=== PATIENT | male | born 1965 | race Caucasian/White ===

== ENCOUNTER 2023-05-25 08:00 | Outpatient (OUT) | payer BC, SELFPAY ==
[2023-05-25] MEDS: COVID VAC 23-24(12UP)MODERNA/PF 50 MCG/0.5 ML VIAL IM (13:00)
== END 2023-05-25 08:01 | disposition home or self-care (01) ==
LOC: VACCLI 06-18 16:23
DX: Z23 Encounter for immunization (principal)
CPT/HCPCS: 90480; 91322

== ENCOUNTER 2023-06-20 08:55 | Outpatient (OUT) | payer BC, SELFPAY ==
[2023-06-20 10:06] LABS: Basophils Percent Auto 0.4 % (0.2-2.0); Eosinophils Absolute Auto 0.1 10^3/uL (0.0-0.7); Eosinophils Percent Auto 1.8 % (0.9-7.0); Hemoglobin 13.4 g/dL (14.0-18.0); Immature Granulocytes Abs Auto 0.01 10^3/uL (0.00-0.03); Immature Granulocytes Pct Auto 0.2 % (0.0-0.5); Lymphocytes Absolute Auto 1.7 10^3/uL (1.2-3.8); Lymphocytes Percent Auto 36.9 % (20.5-60.0); Mean Corpuscular HGB Conc 32.7 g/dL (29.9-35.2); Mean Corpuscular Volume 91.7 fL (80.0-94.0); Mean Platelet Volume 9.8 fL (9.5-13.5); Monocytes Absolute Auto 0.6 10^3/uL (0.3-0.8); Monocytes Percent Auto 13.9 % (1.7-12.0); Neutrophils Absolute Auto 2.1 10^3/uL (1.4-6.5); Neutrophils Percent Auto 46.8 % (43.0-75.0); Platelet Count 261 10^3/uL (150-450); Red Blood Count 4.47 10^6/uL (4.70-6.10); Red Cell Distribution Width 13.4 % (11.0-15.0); White Blood Count 4.5 10^3/uL (4.0-11.0)
[2023-06-20 10:39] LABS: Estimated Average Glucose 123 mg/dL; Glycohemoglobin A1C 5.9 % (4.5-6.2)
[2023-06-20 10:51] LABS: Prostate Specific Antigen Scrn 2.98 ng/mL (<=4.00)
[2023-06-20 10:52] LABS: Alanine Aminotransferase 34 U/L (16-63); Albumin Globulin Ratio 1.2; Albumin Level 4.5 g/dL (3.4-5.0); Alkaline Phosphatase 73 U/L (46-116); Anion Gap 15.2; Aspartate Amino Transferase 32 U/L (15-37); BUN Creatinine Ratio 12.3; Bilirubin Total 0.5 mg/dL (0.2-1.0); Calcium 9.6 mg/dL (8.5-10.1); Carbon Dioxide 28.1 mmol/L (21.0-32.0); Chloride 99 mmol/L (98-107); Chol HDL Ratio 2.2; Cholesterol 175 mg/dL (<=200); Estimated GFR (African America >60 (>=60); Estimated GFR (Non-African Ame 53 (>=60); Globulin 3.7 g/dL; Glucose 117 mg/dL (74-106); HDL Cholesterol 81 mg/dL (40-60); Potassium 4.3 mmol/L (3.5-5.1); Sodium 138 mmol/L (136-145); Thyroid Stimulating Hormone 1.323 uIU/mL (0.358-3.740); Total Protein 8.2 g/dL (6.4-8.2); Triglycerides 74 mg/dL (<=150); VLDL CHOLESTEROL 14.8 mg/dL
== END 2023-06-20 08:56 | disposition home or self-care (01) ==
PROVIDERS: PCP Internal Medicine; Visit Provider Internal Medicine
DX: Z00.00 Encounter for general adult medical examination without abnormal findings (principal)
CPT/HCPCS: 36415; 80053; 80061; 83036; 84443; 85025; G0103

== ENCOUNTER 2023-07-12 09:01 | Emergency (ER) | payer BC, SELFPAY ==
[2023-07-12] VITALS (32 sets, daily range): BP systolic 115–188; BP diastolic 74–92; PULSE 65–81; RESP 14–26; TEMP 36.6; O2SAT 98–99; BMI 27.3
--- NOTE | 2023-07-12 09:14 | PC.NURSE ---
PT STATES UPPER TO MID- PAIN THAT STARTED AT 0530 AND HAS SINCE RADIATED TO MID-CHEST. PT DENIES HX CARDIAC DISEASE BUT HAS EXTENSIVE FAMILY HISTORY OF CARDIAC DISEASE. PT TOOK TYLENOL AND MOTRIN WHEN PAIN STARTED THINKING IT WAS MUSCULAR PAIN.
--- NOTE | 2023-07-12 09:22 | ED.CHESTPAI1 ---
HPI - Chest Pain General Chief Complaint: Chest Pain Stated Complaint: CHEST PAIN Time Seen by Provider: 07/12/23 09:21 Source: patient Mode of arrival: walk-in Limitations: no limitations History of Present Illness HPI narrative: patient presents with discomfort in his chest. 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 It's been persistent since that time. It is not associated with nausea vomiting or diaphoresis. It does not radiate to his neck and jaw or arm. He's not had previous cardiovascular disease. He does take a statin. There is no other cardiovascular risk factors. He does not have any shortness of breath. He's been able to maintain his exercise schedule recently with no shortness of breath. Has notswelling of his legs. Has not had recent viral syndrome. Did not have any unusual events over the weekend. Has not had previous stress test, echo or coronary CT scanning. Related Data Home Medications Medication Instructions Recorded Confirmed pantoprazole 40 mg tablet,delayed 40 mg PO DAILY 07/12/23 07/12/23 release simvastatin 20 mg tablet 20 mg PO BEDTIME 07/12/23 07/12/23 Allergies Allergy/AdvReac Type Severity Reaction Status Date / Time No Known Drug Allergies Allergy Verified 07/12/23 09:09 [facility] Social History Smoking status: Never smoker Exam Narrative Exam Narrative: patient does not appear acutely ill and much of his symptoms have dissipated. He is awake alert oriented ?3 normal cognition. He is not clammy or diaphoretic or anxious. Vital signs are noted. Stat EKG was done on arrival does not show any ST segment elevation or gross abnormalities. Pulse oximetry and vital signs are stable. He's awake alert normal cognition and mentation. HEENT shows no scleral icterus pallor or anemia. He has no carotid bruits. He has no jugular vein distention. Heart sounds are normal with no clicks rubs gallops or murmurs. Lungs are clear with no wheezes rales or rhonchi. He has no abdominal discomfort. Pulses to the extremities are normal with good tissue perfusion and he does not have any pulse deficit between the upper right extremity and the lower right extremity. Legs do not show any evidence of evidence of deep vein thrombosis phlebitis or edema. Skin is warm and dry with no petechiae purpura or rash or exanthem. Neurological examination is within normal limits. Constitutional Vital Signs, click to edit/add: Last Vital Signs Temp 97.8 F 07/12/23 09:05 Pulse 74 07/12/23 09:05 Resp 18 07/12/23 09:05 BP 158/74 H 07/12/23 09:05 Pulse Ox 99 07/12/23 09:05 O2 Del Method Room Air 07/12/23 09:05 Course Vital Signs Vital signs: Vital Signs Temperature 97.8 F 07/12/23 09:05 Pulse Rate 74 07/12/23 09:05 Respiratory Rate 18 07/12/23 09:05 Blood Pressure 158/74 H 07/12/23 09:05 Pulse Oximetry 99 07/12/23 09:05 Oxygen Delivery Method Room Air 07/12/23 09:05 Temperature 97.8 F 07/12/23 09:05 Pulse Rate 74 07/12/23 09:05 Respiratory Rate 18 07/12/23 09:05 Blood Pressure 158/74 H 07/12/23 09:05 Pulse Oximetry 99 07/12/23 09:05 Oxygen Delivery Method Room Air 07/12/23 09:05 MDM - Chest Pain MDM Narrative Medical decision making narrative: patient presents with only one cardiovascular risk factor with elevation of his cholesterol and he is currently on a statin. Has not had previous cardiovascular events or stress testing. Both cardiac troponins are normal. Serial EKGs also normal. Chest x-ray does not show any evidence of widening of the mediastinum or other cardiovascular abnormalities. We did discuss his follow-up with the on-call cardiologistut at [facility]. they indicated they would be glad to see him at any time. I also spoke with his local primary care doctor who will order a stress test for him. At this stage we feel confident that he can resume normal activities until the stress test is completed. Of course returning to to the Emergency Room for any recurrence of symptoms or change Heart Score History: Slightly/Non-Suspicious ECG: Normal Age: <45 years Risk Factors: 1 or 2 Risk Factors Troponin: <Normal Limit Total Heart Score Recommendations & Risks:: 1 Discharge Plan Discharge Chief Complaint: Chest Pain Clinical Impression: Chest pain Patient Disposition: Home, Self-Care Time of Disposition Decision: 11:43 Prescriptions / Home Meds: No Action simvastatin 20 mg tablet 20 mg PO BEDTIME pantoprazole 40 mg tablet,delayed release (DR/EC) 40 mg PO DAILY Additional Instructions: stress test as arranged by Dr. greer Stand Alone Forms: Portal Instructions Referrals: Miguel Angel Greer DO [Primary Care Provider] - 1 week
--- NOTE | 2023-07-12 09:25 | XR_ITS ---
[address] [address] Patient Name: DAVON HECK MRN: [id number] date: 1965 Sex: M Assigned Patient Location: ER Current Patient Location: ER Accession/Order Number: [id number] Exam Date: 07/12/2023 09:45 Report Date: 07/12/2023 10:00 At the request of: JEWELS KRAUSE Procedure: XR chest 1V EXAMINATION: XR chest 1V HISTORY: chest pain COMPARISON: No relevant comparison available. TECHNIQUE: AP portable FINDINGS: LUNGS: No significant pulmonary parenchymal abnormalities. VASCULATURE: No increased pulmonary vasculature. PLEURA: No pneumothorax, effusion, or pleural thickening. CARDIAC: No cardiomegaly or cardiac silhouette abnormality. MEDIASTINUM: No visible mass or adenopathy. BONES: No fracture or visible bone lesion. OTHER: Negative. XR/XR chest 1V IMPRESSION: No acute cardiopulmonary process Electronically authenticated by: FAY MEJIA Date: 07/12/2023 10:00
--- OUTSIDE RECORDS SUMMARY | 2023-07-12 09:29 | XMS_ITS | CCD ---
Author Name Unknown Address [address] [place] [address] Organization [facility] Care Team Providers Care Medical Technologist Hematology Name Role Phone DAVON, DR CHA Admitting Unavailable DAVON, DR CHA Attending Unavailable DAVON, DR CHA Primary Care Unavailable DAVON, DR CHA Consulting Unavailable DAVON, DR CHA Primary Care Unavailable SINDI CARLOS Admitting Unavailable SINDI CARLOS Attending Unavailable SINDI CARLOS Consulting Unavailable MARIA R, DR MAYS Admitting Unavailable MARIA R, DR MAYS Attending Unavailable DAVON, DR CHA Primary Care Unavailable MARIA R, DR MAYS Consulting Unavailable YAYO BOYKIN Admitting Unavailable YAYO BOYKIN Attending Unavailable DAVON, DR CHA Primary Care Unavailable YAYO BOYKIN Consulting Unavailable Allergies Allergy Classification Reported Allergen(s) Allergy Type Date of Onset Reaction(s) Facility (1 source) moxifloxacin Drug Allergy 12-24-2016 [facility] Repository Problems Active Problems Problem Classification Problem Date Documented Da te Episodic/Chronic Malaise and fatigue (4 sources) Other fatigue; Translations: [OTHER FATIGUE] Onset: 06-01-2022 Episodic Other screening for suspected conditions (not mental disorders or infectious disease) (1 source) Encounter for screening for malignant neoplasm of prostate; Translations: [ENC SCREEN MALIG NEOPLASM PROSTATE] Onset: 07-01-2022 Episodic Other upper respiratory disease (1 source) Nasal congestion; Translations: [NASAL CONGESTION] Onset: 06-04-2022 Episodic Unclassified (1 source) COUGH, UNSPECIFIED; Translations: [COUGH, UNSPECIFIED] Onset: 06-04-2022 Unclassified (2 sources) CONTACT W/AND (SUSP) EXPOS COVID-19; Translations: [CONTACT W/AND (SUSP) EXPOS COVID-19] Onset: 01-14-2022 Viral infection (1 source) COVID-19; Translations: [COVID-19] Onset: 01-14-2022 Past or Other Problems Problem Classification Problem Date Documented Da te Episodic/Chronic Unclassified (1 source) CONTACT W/AND (SUSP) EXPOS COVID-19; Translations: [CONTACT W/AND (SUSP) EXPOS COVID-19] Onset: 01-10-2022 Results Test Name Value Interpretation Reference Range Facility CBC AUTO DIFFon 06-23-2022 BASO # 0.0 103/ul Normal 0.0-0.1 [facility] Comment on above: Performed By: #### C BC #### [facility] Laboratory [address] [place] [address] Dr. Cintia Durán Basophils/100 WBC (Bld) 0.7 % Normal 0.2-2.0 [facility] Comment on above: Performed By: #### C BC #### [facility] Laboratory [address] [place] [address] Dr. Cintia Durán EO # 0.2 103/ul Normal 0.0-0.7 [facility] Comment on above: Performed By: #### C BC #### [facility] Laboratory [address] [address] [address] Cintia Durán Eosinophils/100 WBC (Bld) 2.7 % Normal 0.9-7.0 [facility] Comment on above: Performed By: #### C BC #### [facility] Laboratory [address] [place] [address] Dr. Cintia Durán Erythrocyte distribution width (RBC) [Ratio] 12.4 % Normal 11.0-15.0 [facility] Comment on above: Performed By: #### C BC #### [facility] Laboratory [address] [place] [address] Dr. Cintia Durán Hematocrit (Bld) [Volume fraction] 42.7 % Normal 42.0-54.0 [facility] Comment on above: Performed By: #### C BC #### [facility] Laboratory [address] [place] [address] Dr. Cintia Durán Hemoglobin (Bld) [Mass/Vol] 14.0 g/dL Normal 14.0-18.0 [facility] Comment on above: Performed By: #### C BC #### [facility] Laboratory [address] [place] [address] Dr. Cintia Durán IG # 0.02 10e3/ul Normal 0.00-0.03 [facility] Comment on above: Performed By: #### C BC #### [facility] Laboratory [address] [place] [address] Dr. Cintia Durán IG % 0.4 % Normal 0.0-0.5 [facility] Comment on above: Performed By: #### C BC #### [facility] Laboratory [address] [place] [address] Dr. Cintia Durán LYMPH # 2.2 103/ul Normal 1.2-3.8 [facility] Comment on above: Performed By: #### C BC #### [facility] Laboratory [address] [place] [address] Dr. Cintia Durán Lymphocytes/100 WBC (Bld) 38.8 % Normal 20.5-60.0 [facility] Comment on above: Performed By: #### C BC #### [facility] Laboratory [address] [place] [address] Dr. Cintia Durán MANUAL DIFF REQ NO Normal [facility] Comment on above: Performed By: #### C BC #### [facility] Laboratory [address] [place] [address] Dr. Cintia Durán MCH (RBC) [Entitic mass] 31.0 pg Normal 25.9-34.0 [facility] Comment on above: Performed By: #### C BC #### [facility] Laboratory [address] [place] [address] Dr. Cintia Durán MCHC (RBC) [Mass/Vol] 32.8 g/dL Normal 29.9-35.2 [facility] Comment on above: Performed By: #### C BC #### [facility] Laboratory [address] [place] [address] Dr. Cintia Durán MCV (RBC) [Entitic vol] 94.7 fL Critically high 80.0-94.0 [facility] Comment on above: Performed By: #### C BC #### [facility] Laboratory [address] [place] [address] Dr. Cintia Durán MONO # 0.5 103/ul Normal 0.3-0.8 [facility] Comment on above: Performed By: #### C BC #### [facility] Laboratory [address] [place] [address] Dr. Cintia Durán Monocytes/100 WBC (Bld) 9.6 % Normal 1.7-12.0 [facility] Comment on above: Performed By: #### C BC #### [facility] Laboratory [address] [place] [address] Dr. Cintia Durán NEUT # 2.7 103/ul Normal 1.4-6.5 [facility] Comment on above: Performed By: #### C BC #### [facility] Laboratory [address] [place] [address] Dr. Cintia Durán Neutrophils/100 WBC (Bld) 47.8 % Normal 43.0-75.0 [facility] Comment on above: Performed By: #### C BC #### [facility] Laboratory [address] [place] [address] Dr. Cintia Durán Platelet mean volume (Bld) [Entitic vol] 9.7 fL Normal 9.5-13.5 [facility] Comment on above: Performed By: #### C BC #### [facility] Laboratory [address] [place] [address] Dr. Cintia Durán PLT 261 103/ul Normal 150-450 [facility] Comment on above: Performed By: #### C BC #### [facility] Laboratory [address] [place] [address] Dr. Cintia Durán RBC 4.51 106/ul Critically low 4.70-6.10 [facility] Comment on above: Performed By: #### C BC #### [facility] Laboratory [address] [place] [address] Dr. Cintia Durán WBC 5.7 103/ul Normal 4.0-11.0 [facility] Comment on above: Performed By: #### C BC #### [facility] Laboratory [address] [place] [address] Dr. Cintia Durán GLYCOHEMOGLOBIN A1Con 2021 ADA RECOMMENDATION SEE BELOW Normal [facility] Comment on above: Result Comment: ADA RECOMMENDED LIMIT 4.0 - 6.0 ADA THERAPEUTIC TARGET < 7.0 ACTION SUGGESTED > 7.0 Performed By: #### A 1C #### [facility] Laboratory [address] [address] [address] Cintia Durán Glucose [Mass/Vol] 111 mg/dL Normal [facility] Comment on above: Performed By: #### A 1C #### [facility] Laboratory [address] [address] [address] Cintia Durán HbA1c (Bld) [Mass fraction] 5.5 % Normal 4.5-6.2 [facility] Comment on above: Performed By: #### A 1C #### [facility] Laboratory [address] [address] [address] Cintia Durán LIPID PROFILEon 06-23-2022 CHOL-HDL RATIO NORM SEE BELOW Normal [facility] Comment on above: Result Comment: 3.3 - 4.4 LOW RISK 4.4 - 7.1 AVERAGE RISK 7.1 - 11.0 MODERATE RISK >11.0 HIGH RISK Performed By: #### L IPID, CMP, TSH #### [facility] Laboratory [address] [address] [address] Cintia Durán Cholesterol [Mass/Vol] 249 mg/dL Critically high <=200 [facility] Comment on above: Performed By: #### L IPID, CMP, TSH #### [facility] Laboratory [address] [address] [address] Cintia Durán Cholesterol in HDL [Mass/Vol] 79 mg/dL Critically high 40-60 [facility] Comment on above: Performed By: #### L IPID, CMP, TSH #### [facility] Laboratory [address] [address] [address] Cintia Durán Cholesterol in LDL [Mass/Vol] 149.2 mg/dL Normal [facility] Comment on above: Performed By: #### L IPID, CMP, TSH #### [facility] Laboratory [address] [address] [address] Cintia Durán Cholesterol.total/Ch olesterol in HDL [Mass ratio] 3.2 {ratio} Normal [facility] Comment on above: Performed By: #### L IPID, CMP, TSH #### [facility] Laboratory [address] [address] [address] Cintia Durán HDL NORMAL > or = 60 mg/dl - LOW CARDIOVASCULAR RISK <40 mg/dl - HIGH CARDIOVASCULAR RISK Normal [facility] Comment on above: Performed By: #### L IPID, CMP, TSH #### [facility] Laboratory [address] [address] [address] Cintia Durán LDL CALC NORMAL SEE BELOW Normal [facility] Comment on above: Result Comment: <100 mg/dl OPTIMAL 100 - 129 mg/dl NEAR OR ABOVE OPTIMAL 130 - 159 mg/dl BORDERLINE HIGH 160 - 189 mg/dl HIGH >190 mg/dl VERY HIGH Performed By: #### L IPID, CMP, TSH #### [facility] Laboratory [address] [address] [address] Cintia Durán Triglyceride [Mass/Vol] 104 mg/dL Normal <=150 [facility] Comment on above: Performed By: #### L IPID, CMP, TSH #### [facility] Laboratory [address] [address] [address] Cintia Durán VLDL CALC 20.8 mg/dL Normal [facility] Comment on above: Performed By: #### L IPID, CMP, TSH #### [facility] Laboratory [address] [address] [address] Cintia Durán PROF 14(COMP METB)on 022 Albumin [Mass/Vol] 4.4 g/dL Normal 3.4-5.0 [facility] Comment on above: Performed By: #### L IPID, CMP, TSH #### [facility] Laboratory [address] [address] [address] Cintia Durán Albumin/Globulin [Mass ratio] 1.2 {ratio} Normal [facility] Comment on above: Performed By: #### L IPID, CMP, TSH #### [facility] [address] [address] [address] Cintia Durán ALP [Catalytic activity/Vol] 68 U/L Normal 46-116 [facility] Comment on above: Performed By: #### L IPID, CMP, TSH #### [facility] Laboratory [address] [address] [address] Cintia Durán ALT [Catalytic activity/Vol] 31 U/L Normal 16-63 [facility] Comment on above: Performed By: #### L IPID, CMP, TSH #### [facility] Laboratory [address] [address] [address] Cintia Durán Anion gap [Moles/Vol] 12.4 mmol/L Normal [facility] Comment on above: Performed By: #### L IPID, CMP, TSH #### [facility] [address] [address] [address] Cintia Durán AST [Catalytic activity/Vol] 26 U/L Normal 15-37 [facility] Comment on above: Performed By: #### L IPID, CMP, TSH #### [facility] Laboratory [address] [place] [address] Dr. Cintia Durán Bilirubin [Mass/Vol] 0.4 mg/dL Normal 0.2-1.0 [facility] Comment on above: Performed By: #### L IPID, CMP, TSH #### [facility] [address] [address] [address] Cintia Durán Calcium [Mass/Vol] 9.6 mg/dL Normal 8.5-10.1 [facility] Comment on above: Performed By: #### L IPID, CMP, TSH #### [facility] Laboratory [address] [place] [address] Dr. Cintia Durán Chloride [Moles/Vol] 100 mmol/L Normal 98-107 [facility] Comment on above: Performed By: #### L IPID, CMP, TSH #### [facility] Laboratory [address] [place] [address] Dr. Cintia Durán CO2 [Moles/Vol] 27.9 mmol/L Normal 21.0-32.0 [facility] Comment on above: Performed By: #### L IPID, CMP, TSH #### [facility] Laboratory [address] [place] [address] Dr. Cintia Durán Creatinine [Mass/Vol] 1.00 mg/dL Normal 0.70-1.30 [facility] Comment on above: Performed By: #### L IPID, CMP, TSH #### [facility] Laboratory [address] [address] [address] Cintia Durán EGFR-AF ESTONIAN >60 Normal >=60 [facility] Comment on above: Performed By: #### L IPID, CMP, TSH #### [facility] Laboratory [address] [address] [address] Cintia Durán EGFR-NON AF ESTONIAN >60 Normal >=60 [facility] Comment on above: Performed By: #### L IPID, CMP, TSH #### [facility] Laboratory [address] [address] [address] Cintia Durán Globulin (S) [Mass/Vol] 3.7 g/dL Normal [facility] Comment on above: Performed By: #### L IPID, CMP, TSH #### [facility] Laboratory [address] [address] [address] Cintia Durán Glucose [Mass/Vol] 95 mg/dL Normal 74-106 [facility] Comment on above: Performed By: #### L IPID, CMP, TSH #### [facility] Laboratory [address] [address] [address] Cintia Durán Potassium [Moles/Vol] 4.3 mmol/L Normal 3.5-5.1 [facility] Comment on above: Performed By: #### L IPID, CMP, TSH #### [facility] Laboratory [address] [address] [address] Cintia Durán Protein [Mass/Vol] 8.1 g/dL Normal 6.4-8.2 [facility] Comment on above: Performed By: #### L IPID, CMP, TSH #### [facility] Laboratory [address] [address] [address] Cintia Durán Sodium [Moles/Vol] 136 mmol/L Normal 136-145 [facility] Comment on above: Performed By: #### L IPID, CMP, TSH #### [facility] Laboratory [address] [place] [address] Dr. Cintia Durán Urea nitrogen [Mass/Vol] 16.0 mg/dL Normal 7.0-18.0 [facility] Comment on above: Performed By: #### L IPID, [facility], TSH #### [facility] Laboratory [address] [place] [address] Dr. Cintia Durán Urea nitrogen/Creatinine [Mass ratio] 16.0 mg/mg Normal [facility] Comment on above: Performed By: #### L IPID, CMP, TSH #### [facility] Laboratory [address] [place] [address] Dr. Cintia Durán TSHon 06-23-2022 TSH 1.975 uIU/mL Normal 0.358-3.[address] [facility] Comment on above: Performed By: #### L IPID, CMP, TSH #### [facility] Laboratory [address] [place] [address] Dr. Cintia Durán Covid-19 PCR ([facility])on 05-06 SARS-CoV-2 (COVID-19) RNA NGUYEN+probe Ql (Unsp spec) Not detected Normal NOT DETECTED [facility] Comment on above: Result Comment: When diagnostic testing is negative, the possibility of a false negative should be considered in the context of a patient's recent exposures and the presence of clinical signs and symptoms consistent with SARS-CoV-2. This test is not yet approved or cleared by the [place] FDA. When there are no FDA-approved or cleared tests available, and other criteria are met, FDA can make tests available under an emergency access mechanism called an Emergency Use Authorization (EUA). The EUA for this test is supported by the [place] of Health and Human Service's declaration that circumstances exist to justify the emergency use of in vitro diagnostics for the detection and/or diagnosis of the virus that causes COVID-19. This EUA will remain in effect for the duration of the COVID-19 declaration justifying emergency of IVDs, unless it is terminated or revoked by the FDA (after which the test may no longer be used). Performed By: #### C VDTBH #### [facility] Laboratory [address] [place] [address] Dr. Cintia Durán INFLUENZA A AND B AGon 06-01 [facility] SEE BELOW Normal [facility] Comment on above: Result Comment: Nega tive for Flu A protein angiten. Infection due to Flu A cannot be ruled out. Flu A angiten in the sample may be below the detection limit of the test. Performed By: #### I NFLUAB #### [facility] Laboratory [address] [place] [address] Dr. Cintia Dur[facility] Normal [facility] Comment on above: Result Comment: Nega tive for Flu B protein antigen. Infection due to Flu B cannot be ruled out. Flu B antigen in the sample may be below the detection limit of the test. Performed By: #### I NFLUAB #### [facility] Laboratory [address] [place] [address] Dr. Cintia Durán INFLUENZA A AG Negative Normal NEGATIVE SEE COMMENT [facility] Comment on above: Performed By: #### I NFLUAB #### [facility] Laboratory [address] [place] [address] Dr. Cintia Durán INFLUENZA B AG Negative Normal NEGATIVE SEE COMMENT [facility] Comment on above: Performed By: #### I NFLUAB #### [facility] Laboratory [address] [place] [address] Dr. Cintia Durán INTERNAL CONTROLS Within Normal Limits Normal Within Normal Limits [facility] Comment on above: Performed By: #### I NFLUAB #### [facility] Laboratory [address] [place] [address] Dr. Cintia Durán [facility]on SARS-CoV-2 (COVID-19) RNA NGUYEN+probe Ql (Unsp spec) Detected Critically abnormal NOT DETECTED [facility] Comment on above: Result Comment: This test is not yet approved or cleared by the [place] FDA. When there are no FDA-approved or cleared tests available, and other criteria are met, FDA can make tests available under an emergency access mechanism called an Emergency Use Authorization (EUA). The EUA for this test is supported by the [place] of Health and Human Service's declaration that circumstances exist to justify the emergency use of in vitro diagnostics for the detection and/or diagnosis of the virus that causes COVID-19. This EUA will remain in effect for the duration of the COVID-19 declaration justifying emergency of IVDs, unless it is terminated or revoked by the FDA (after which the test may no longer be used). Performed By: #### C [facility] #### [facility] Laboratory [address] [place] [id number] [address] Cintia Durán Encounters Encounter Date Encounter Type Care Provider Facility Start: 07-01-2022 Encounter for genera l adult medical examination without abnormal findings DR SEMAJ MAYS [facility] Start: 06-23-2022 End: 06-24-[address] SEMAJ MAYS Facility:[facility] Start: 06-23-2022 End: 06-24-2022 Encounter for general adult medical examination without abnormal findings DR SEMAJ MAYS Facility:[facility] Start: 06-01-2022 End: 06-01-2022 ambulatory YAYO BOYKIN Facility:[facility] Start: 05-13-2022 End: 05-14-[address] DAVON HECK Facility:[facility] Start: 01-10-2022 End: 01-11-[address] SEMAJ MAYS Facility:[facility] Procedures Date Procedure Procedure Detail Performing Clinician Start: 06-23-[address] KWONG [place] Comment on above: Performed By: #### P [facility] #### [facility] Laboratory [address] [place], [place] [id number] Dr. Cintia Durán Payers Date Payer Category Payer Unknown [id number] 1965 Unknown [id number] 08.20.83 [id number] 1965 Unknown [id number] 08.20.83 [id number] 1965 Unknown [id number] 08.20.83 [id number] 1960 Self-pay [id number] Unknown [id number] 08.20.83 [id number] Summary Purpose Family History No Family History Records Found Advance Directives No Advanced Directives Records Found Additional Source Comments (unrecognized sect ion and content) No Status Records Found INFORMATION SOURCE (unrecogn ized section and content) DATE CREATED AUTHOR 07/01/2022 [facility] FOR RECORDS PERTAINING TO PATIENTS WHO ARE OR HAVE BEEN ENROLLED IN A CHEMICAL DEPENDENCY/SUBSTANCEABUSE PROGRAM, SOME INFORMATION MAY BE OMITTED. This clinical summary was aggregated from multiple sources. Caution should be exercised in using it in the provision of clinical care. This summary normalizes information from multiple sources, and as a consequence, information in this document may materially change the coding, format and clinical context of patient data. In addition, data may be omitted in some cases. CLINICAL DECISIONS SHOULD BE BASED ON THE PRIMARY CLINICAL RECORDS. [facility] [employer] [facility] provides no warranty or guarantee of the accuracy or completeness of information in this document.
[2023-07-12 09:37] LABS: Basophils Percent Auto 0.9 % (0.2-2.0); Eosinophils Absolute Auto 0.2 10^3/uL (0.0-0.7); Eosinophils Percent Auto 3.6 % (0.9-7.0); Hematocrit 43.1 % (42.0-54.0); Hemoglobin 14.2 g/dL (14.0-18.0); Immature Granulocytes Abs Auto 0.01 10^3/uL (0.00-0.03); Immature Granulocytes Pct Auto 0.2 % (0.0-0.5); Lymphocytes Absolute Auto 1.3 10^3/uL (1.2-3.8); Lymphocytes Percent Auto 29.3 % (20.5-60.0); Mean Corpuscular HGB Conc 32.9 g/dL (29.9-35.2); Mean Corpuscular Hemoglobin 30.4 pg (25.9-34.0); Mean Corpuscular Volume 92.3 fL (80.0-94.0); Mean Platelet Volume 9.8 fL (9.5-13.5); Monocytes Absolute Auto 0.4 10^3/uL (0.3-0.8); Monocytes Percent Auto 8.9 % (1.7-12.0); Neutrophils Absolute Auto 2.6 10^3/uL (1.4-6.5); Neutrophils Percent Auto 57.1 % (43.0-75.0); Platelet Count 252 10^3/uL (150-450); Red Blood Count 4.67 10^6/uL (4.70-6.10); Red Cell Distribution Width 13.7 % (11.0-15.0); White Blood Count 4.5 10^3/uL (4.0-11.0)
[2023-07-12 09:51] LABS: Alanine Aminotransferase 35 U/L (16-63); Albumin Globulin Ratio 1.1; Albumin Level 4.5 g/dL (3.4-5.0); Alkaline Phosphatase 86 U/L (46-116); Aspartate Amino Transferase 28 U/L (15-37); BUN Creatinine Ratio 10.7; Bilirubin Total 0.4 mg/dL (0.2-1.0); Calcium 9.9 mg/dL (8.5-10.1); Carbon Dioxide 27.6 mmol/L (21.0-32.0); Chloride 98 mmol/L (98-107); Estimated GFR (African America >60 (>=60); Estimated GFR (Non-African Ame 56 (>=60); Glucose 159 mg/dL (74-106); Potassium 3.6 mmol/L (3.5-5.1); Sodium 133 mmol/L (136-145); Total Protein 8.5 g/dL (6.4-8.2)
--- NOTE | 2023-07-12 09:56 | ECG_ITS ---
[facility] Test Date: 2023-07-12 Pat Name: DAVON HECK Department: Room: - Gender: Male [employer]: : [id number] Requested By: SEMAJ MAYS Order Number: [id number] Reading MD: SEMAJ MAYS Measurements Intervals [employer] Rate: 69 P: 40 DC: 166 QRS: -58 QRSD: 98 T: 51 QT: 406 QTc: 426 Interpretive Statements 1100 Sinus rhythm 2630 Left anterior fascicular block 7400 S1-S2-S3 pattern, consistent with pulmonary disease, RVH, or normal variant 8003 Consistent with pulmonary disease 9150 abnormal ECG No previous ECG available for comparison Electronically Signed On 07-13-2023 7:06:02 EST by SEMAJ MAYS
--- NOTE | 2023-07-12 10:02 | ECG_ITS ---
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
[2023-07-12 11:49] LABS: Troponin I High Sensitivity 6.8 pg/mL (4.0-76.1)
== END 2023-07-12 12:09 | disposition home or self-care (01) ==
PROVIDERS: Emergency Provider Emergency Medicine Emergency Medical Services; PCP Internal Medicine
DX: R07.9 Chest pain, unspecified (principal); Z79.899 Other long term (current) drug therapy
CPT/HCPCS: 36415; 71045; 80053; 84484; 85025; 93005; 99285

== ENCOUNTER 2023-07-15 10:58 | Outpatient (OUT) | payer BC, SELFPAY ==
--- NOTE | 2023-07-15 10:45 | NM_ITS ---
Patient Name: DAVON HECK MR#: [id number] : 1965 Exam Date: 07/15/2023 Ordering Doctor: DR Miguel Angel Dupont D.O. RADIOLOGY REPORT PROCEDURE: NM YUKI PERF SPECT REST STR COMPARISON: None. INDICATIONS: CHEST PAIN TECHNIQUE: Exam Description: Stress/Rest one day protocol gated SPECT Rest Imagin.1 mCi Tc-99m Cardiolite IV on 07/15/2023 Stress Imaging 30.0 mCi Tc-99m Cardiolite IV on 07/15/2023 Exercise Protocol: [place] Heart Rate (bpm): Rest: 66 Max: 160 PMHR: 98 Blood Pressure: Rest: 112/78 Max: 146/84 Exercise Time: Minutes: 7 Seconds: 40 Stage Reached: Stage: 3 Mets 10.0 Symptoms: Rest and peak stress ECG findings were normal and the exercise portion of the study was normal per attending physician Dr. Jarred Dupont. For more details please see separate cardiac stress test report. FINDINGS: QUALITY OF STUDY: Good. PERFUSION DEFECT: Area of perfusion abnormality in the inferior distal wall on rest images only, likely related to technique. No perfusion abnormality on stress images LOCATION: N/A SIZE: N/A. SEVERITY: N/A. TYPE: N/A. WALL MOTION: Normal. LV SIZE: Normal. 98 mL. TID / TCD: None; 0.8 LVEF: Normal. Calculated EF 72%. SUMMARY: Myocardial perfusion imaging study is NORMAL. CONCLUSION: 1. No reversible ischemia 2. Normal exercise test Dictated by: Alessio Mota MD on 07/15/2023 at 14:28 Approved by: Alessio Mota MD on 07/15/2023 at 14:40
--- OUTSIDE RECORDS SUMMARY | 2023-07-15 11:02 | XMS_ITS | CCD ---
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 Name Role Phone DAVON, DR CHA Admitting [...] Primary Care Unavailable YAYO BOYKIN Consulting Unavailable Miguel Angel Mays Unavailable Allergies Allergy Classification Reported Allergen(s) Allergy Type Date of Onset Reaction(s) Facility (1 source) moxifloxacin Drug Allergy 7 [facility] (1 source) moxifloxacin Drug Allergy Unknown [facility] Other Medications Current Medications Medication Drug Class(es) Dates Sig (Normalized) Sig (Original) pantoprazole 40 mg delayed release oral tablet (1 source) Proton Pump Inhibitor take 1 tablet by mouth every twenty-four hours Protonix 40 MG 1 tablet Orally Once a day Active simvastatin 20 mg oral tablet (1 source) HMG-CoA Reductase Inhibitor take 1 tablet by mouth once daily in the evening Simvastatin 20 MG TAKE 1 TABLET BY MOUTH EVERY DAY IN THE EVENING Active sulfamethoxazole 800 mg / trimethoprim 160 mg oral tablet (1 source) Dihydrofolate Reductase Inhibitor Antibacterial, Sulfonamide Antimicrobial Start: 07-13-2023 Bactrim DS 800-160 MG as directed Orally Twice a day for 21 days Jul, Active Problems Active Problems Problem Classification Problem Date Documented Da te Episodic/Chronic Chronic kidney disease (1 source) Chronic kidney disease stage 3A ; Translations: [Stage 3a chronic kidney disease] Chronic Diabetes mellitus without complication (1 source) Impaired fasting glucose Episodic Disorders of lipid metabolism (3 sources) Pure hypercholesterolemi a; 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] Chronic Esophageal disorders (1 source) Gastro-esophageal reflux disease with esophagitis; Translations: [Gastroesophageal reflux disease with esophagitis without hemorrhage] Chronic Malaise and fatigue (4 sources) Other fatigue; Translations: [OTHER FATIGUE] Onset: 06-01-2022 Episodic Nonspecific chest pain (1 source) Precordial pain Episodic Other nutritional; endocrine; and metabolic disorders (1 source) Overweight Episodic Other screening for suspected conditions (not mental disorders or infectious disease) (3 sources) Encounter for screening for malignant neoplasm of prostate; Translations: [Elevated prostate specific antigen [PSA]] Onset: 07-01-2022 Episodic Other upper respiratory disease (1 source) Nasal congestion; Translations: [NASAL CONGESTION] Onset: 06-04-2022 Episodic Residual codes; unclassified (1 source) Obstructive sleep apnea syndrome; Translations: [Obstructive sleep apnea (adult) (pediatric)] Chronic Unclassified (1 source) COUGH, UNSPECIFIED; Translations: [COUGH, UNSPECIFIED] Onset: 06-04-2022 Unclassified (2 sources) CONTACT W/AND (SUSP) EXPOS COVID-19; Translations: [CONTACT W/AND (SUSP) EXPOS COVID-19] Onset: 01-14-2022 Viral infection (1 source) COVID-19; Translations: [COVID-19] Onset: 01-14-2022 Past or Other Problems Problem Classification Problem Date Documented Da te Episodic/Chronic Chronic kidney disease (1 source) Chronic kidney disease Esophageal disorders (1 source) Esophageal disorders Unclassified (1 source) CONTACT W/AND (SUSP) EXPOS COVID-19; Translations: [CONTACT W/AND (SUSP) EXPOS COVID-19] Onset: 01-10-2022 Results Test Name Value Interpretation Reference Range Facility CBC AUTO DIFFon 06-23-2022 BASO # 0.0 103/ul Normal 0.0-0.1 [facility] Comment on above: Performed By: #### C BC #### [facility] [address] [address] [address] Cintia Durán Basophils/100 WBC (Bld) 0.7 % Normal 0.2-2.0 [facility] Comment on above: Performed By: #### C BC #### [facility] [address] [place] [address] Dr. Cintia Durán EO # 0.2 103/ul Normal 0.0-0.7 [facility] Comment on above: Performed By: #### C BC #### [facility] [address] [place] [address] Dr. Cintia Durán Eosinophils/100 WBC (Bld) 2.7 % Normal 0.9-7.0 [facility] Comment on above: Performed By: #### C BC #### [facility] [address] [place] [address] Dr. Cintia Durán Erythrocyte distribution width (RBC) [Ratio] 12.4 % Normal 11.0-15.0 [facility] Comment on above: Performed By: #### C BC #### [facility] [address] [place] [address] Dr. Cintia Durán Hematocrit (Bld) [Volume fraction] 42.7 % Normal 42.0-54.0 [facility] Comment on above: Performed By: #### C BC #### [facility] [address] [place] [address] Dr. Cintia Durán Hemoglobin (Bld) [Mass/Vol] 14.0 g/dL Normal 14.0-18.0 [facility] Comment on above: Performed By: #### C BC #### [facility] [address] [place] [address] Dr. Cintia Durán IG # 0.02 10e3/ul Normal 0.00-0.03 [facility] Comment on above: Performed By: #### C BC #### [facility] [address] [place] [address] Dr. Cintia Durán IG % 0.4 % Normal 0.0-0.5 [facility] Comment on above: Performed By: #### C BC #### [facility] [address] [place] [address] Dr. Cintia Durán LYMPH # 2.2 103/ul Normal 1.2-3.8 [facility] Comment on above: Performed By: #### C BC #### [facility] [address] [place] [address] Dr. Cintia Durán Lymphocytes/100 WBC (Bld) 38.8 % Normal 20.5-60.0 [facility] Comment on above: Performed By: #### C BC #### [facility] [address] [place] [address] Dr. Cintia uDrán MANUAL DIFF REQ NO Normal [facility] Comment on above: Performed By: #### C BC #### [facility] [address] [place] [address] Dr. Cintia Durán MCH (RBC) [Entitic mass] 31.0 pg Normal 25.9-34.0 [facility] Comment on above: Performed By: #### C BC #### [facility] [address] [place] [address] Dr. Cintia Durán MCHC (RBC) [Mass/Vol] 32.8 g/dL Normal 29.9-35.2 [facility] Comment on above: Performed By: #### C BC #### [facility] [address] [place] [address] Dr. Cintia Durán MCV (RBC) [Entitic vol] 94.7 fL Critically high 80.0-94.0 [facility] Comment on above: Performed By: #### C BC #### [facility] [address] [place] [address] Dr. Cintia Durán MONO # 0.5 103/ul Normal 0.3-0.8 [facility] Comment on above: Performed By: #### C BC #### [facility] [address] [place] [address] Dr. Cintia Durán Monocytes/100 WBC (Bld) 9.6 % Normal 1.7-12.0 [facility] Comment on above: Performed By: #### C BC #### [facility] [address] [place] [address] Dr. Cintia Durán NEUT # 2.7 103/ul Normal 1.4-6.5 [facility] Comment on above: Performed By: #### C BC #### [facility] [address] [address] [address] Cintia Durán Neutrophils/100 WBC (Bld) 47.8 % Normal 43.0-75.0 [facility] Comment on above: Performed By: #### C BC #### [facility] [address] [address] [address] Cintia Durán Platelet mean volume (Bld) [Entitic vol] 9.7 fL Normal 9.5-13.5 [facility] Comment on above: Performed By: #### C BC #### [facility] [address] [address] [address] Cintia Durán PLT 261 103/ul Normal 150-450 [facility] Comment on above: Performed By: #### C BC #### [facility] [address] [place] [address] Dr. Cintia Durán RBC 4.51 106/ul Critically low 4.70-6.10 [facility] Comment on above: Performed By: #### C BC #### [facility] [address] [address] [address] Cintia Durán WBC 5.7 103/ul Normal 4.0-11.0 [facility] Comment on above: Performed By: #### C BC #### [facility] [address] [place] [address] Dr. Cintia Durán GLYCOHEMOGLOBIN A1Con 2021 ADA RECOMMENDATION SEE BELOW Normal [facility] Comment on above: Result Comment: ADA RECOMMENDED LIMIT 4.0 - 6.0 ADA THERAPEUTIC TARGET < 7.0 ACTION SUGGESTED > 7.0 Performed By: #### A 1C #### [facility] [address] [address] [address] Cintia Durán Glucose [Mass/Vol] 111 mg/dL Normal [facility] Comment on above: Performed By: #### A 1C #### [facility] [address] [place] [address] Dr. Cintia Durán HbA1c (Bld) [Mass fraction] 5.5 % Normal 4.5-6.2 [facility] Comment on above: Performed By: #### A 1C #### [facility] [address] [address] [address] Cintia Durán LIPID PROFILEon 06-23-2022 CHOL-HDL RATIO NORM SEE BELOW Normal [facility] Comment on above: Result Comment: 3.3 - 4.4 LOW RISK 4.4 - 7.1 AVERAGE RISK 7.1 - 11.0 MODERATE RISK >11.0 HIGH RISK Performed By: #### L IPID, CMP, TSH #### [facility] [address] [address] [address] Cintia Durán Cholesterol [Mass/Vol] 249 mg/dL Critically high <=200 [facility] Comment on above: Performed By: #### L IPID, CMP, TSH #### [facility] [address] [address] [address] Cintia Durán Cholesterol in HDL [Mass/Vol] 79 mg/dL Critically high 40-60 [facility] Comment on above: Performed By: #### L IPID, CMP, TSH #### [facility] [address] [address] [address] Cintia Durán Cholesterol in LDL [Mass/Vol] 149.2 mg/dL Normal [facility] Comment on above: Performed By: #### L IPID, CMP, TSH #### [facility] [address] [address] [address] Cintia Durán Cholesterol.total/Ch olesterol in HDL [Mass ratio] 3.2 {ratio} Normal [facility] Comment on above: Performed By: #### L IPID, CMP, TSH #### [facility] [address] [address] [address] Cintia Durán HDL NORMAL > or = 60 mg/dl - LOW CARDIOVASCULAR RISK <40 mg/dl - HIGH CARDIOVASCULAR RISK Normal [facility] Comment on above: Performed By: #### L IPID, CMP, TSH #### [facility] [address] [address] [address] Cintia Durán LDL CALC NORMAL SEE BELOW Normal [facility] Comment on above: Result Comment: <100 mg/dl OPTIMAL 100 - 129 mg/dl NEAR OR ABOVE OPTIMAL 130 - 159 mg/dl BORDERLINE HIGH 160 - 189 mg/dl HIGH >190 mg/dl VERY HIGH Performed By: #### L IPID, CMP, TSH #### [facility] [address] [address] [address] Cintia Durán Triglyceride [Mass/Vol] 104 mg/dL Normal <=150 [facility] Comment on above: Performed By: #### L IPID, CMP, TSH #### [facility] [address] [address] [address] Cintia Durán VLDL CALC 20.8 mg/dL Normal [facility] Comment on above: Performed By: #### L IPID, CMP, TSH #### [facility] [address] [address] [address] Cintia Durán PROF 14(COMP METB)on 022 Albumin [Mass/Vol] 4.4 g/dL Normal 3.4-5.0 [facility] Comment on above: Performed By: #### L IPID, CMP, TSH #### [facility] [address] [place] [address] Dr. Cintia Durán Albumin/Globulin [Mass ratio] 1.2 {ratio} Normal [facility] Comment on above: Performed By: #### L IPID, CMP, TSH #### [facility] [address] [place] [address] Dr. Cintia Durán ALP [Catalytic activity/Vol] 68 U/L Normal 46-116 [facility] Comment on above: Performed By: #### L IPID, CMP, TSH #### [facility] [address] [place] [address] Dr. Cintia Durán ALT [Catalytic activity/Vol] 31 U/L Normal 16-63 [facility] Comment on above: Performed By: #### L IPID, CMP, TSH #### [facility] [address] [place] [address] Dr. Cintia Durán Anion gap [Moles/Vol] 12.4 mmol/L Normal [facility] Comment on above: Performed By: #### L IPID, CMP, TSH #### [facility] [address] [address] [address] Cintia Durán AST [Catalytic activity/Vol] 26 U/L Normal 15-37 [facility] Comment on above: Performed By: #### L IPID, CMP, TSH #### [facility] [address] [address] [address] Cintia Durán Bilirubin [Mass/Vol] 0.4 mg/dL Normal 0.2-1.0 [facility] Comment on above: Performed By: #### L IPID, CMP, TSH #### [facility] [address] [address] [address] Cintia Durán Calcium [Mass/Vol] 9.6 mg/dL Normal 8.5-10.1 [facility] Comment on above: Performed By: #### L IPID, CMP, TSH #### [facility] [address] [place] [address] Dr. Cintia Durán Chloride [Moles/Vol] 100 mmol/L Normal 98-107 [facility] Comment on above: Performed By: #### L IPID, CMP, TSH #### [facility] [address] [address] [address] Cintia Durán CO2 [Moles/Vol] 27.9 mmol/L Normal 21.0-32.0 [facility] Comment on above: Performed By: #### L IPID, CMP, TSH #### [facility] [address] [address] [address] Cintia Durán Creatinine [Mass/Vol] 1.00 mg/dL Normal 0.70-1.30 [facility] Comment on above: Performed By: #### L IPID, CMP, TSH #### [facility] [address] [address] [address] Cintia Durán EGFR-AF MONGOLIAN >60 Normal >=60 [facility] Comment on above: Performed By: #### L IPID, CMP, TSH #### [facility] [address] [place] [address] Dr. Cintia Durán EGFR-NON AF MONGOLIAN >60 Normal >=60 [facility] Comment on above: Performed By: #### L IPID, CMP, TSH #### [facility] [address] [place] [address] Dr. Cintia Durán Globulin (S) [Mass/Vol] 3.7 g/dL Normal [facility] Comment on above: Performed By: #### L IPID, CMP, TSH #### [facility] [address] [place] [address] Dr. Cintia Durán Glucose [Mass/Vol] 95 mg/dL Normal 74-106 [facility] Comment on above: Performed By: #### L IPID, CMP, TSH #### [facility] [address] [place] [address] Dr. Cintia Durán Potassium [Moles/Vol] 4.3 mmol/L Normal 3.5-5.1 [facility] Comment on above: Performed By: #### L IPID, CMP, TSH #### [facility] [address] [place] [address] Dr. Cintia Durán Protein [Mass/Vol] 8.1 g/dL Normal 6.4-8.2 [facility] Comment on above: Performed By: #### L IPID, CMP, TSH #### [facility] [address] [place] [address] Dr. Cintia Durán Sodium [Moles/Vol] 136 mmol/L Normal 136-145 [facility] Comment on above: Performed By: #### L IPID, CMP, TSH #### [facility] [address] [place] [address] Dr. Cintia Durán Urea nitrogen [Mass/Vol] 16.0 mg/dL Normal 7.0-18.0 [facility] Comment on above: Performed By: #### L IPID, CMP, TSH #### [facility] [address] [place] [address] Dr. Cintia Durán Urea nitrogen/Creatinine [Mass ratio] 16.0 mg/mg Normal [facility] Comment on above: Performed By: #### L IPID, CMP, TSH #### [facility] [address] [place] [address] Dr. Cintia Durán TSHon 06-23-2022 TSH 1.975 uIU/mL Normal 0.358-3.740 [facility] Comment on above: Performed By: #### L IPID, CMP, TSH #### [facility] [address] [address] [address] Cintia Durán Covid-19 PCR ([facility])on 05-06 SARS-CoV-2 (COVID-19) RNA NGUYEN+probe Ql (Unsp spec) Not detected Normal NOT DETECTED [facility] Comment on above: Result Comment: When diagnostic [...] for this test is supported by the Research Program Manager of Health and Human Service's declaration that [...] used). Performed By: #### C VDTBH #### [facility] [address] [place] [address] Dr. Cintia Durán INFLUENZA A AND B AGon 06-01 INFLUANEGH SEE BELOW Normal [facility] Comment on above: Result Comment: Nega tive for Flu A protein angiten. Infection due to Flu A cannot be ruled out. Flu A angiten in the sample may be below the detection limit of the test. Performed By: #### I NFLUAB #### [facility] [address] [place] [address] Dr. Cintia Durán INFLUBNEG SEE BELOW Normal [facility] Comment on above: Result Comment: Nega tive for Flu B protein antigen. Infection due to Flu B cannot be ruled out. Flu B antigen in the sample may be below the detection limit of the test. Performed By: #### I NFLUAB #### [facility] [address] [place] [address] Dr. Cintia Durán INFLUENZA A AG Negative Normal NEGATIVE SEE COMMENT [facility] Comment on above: Performed By: #### I NFLUAB #### [facility] [address] [place] [address] Dr. Cintia Durán INFLUENZA B AG Negative Normal NEGATIVE SEE COMMENT [facility] Comment on above: Performed By: #### I NFLUAB #### [facility] [address] [place] [address] Dr. Cintia Durán INTERNAL CONTROLS Within Normal Limits Normal Within Normal Limits [facility] Comment on above: Performed By: #### I NFLUAB #### [facility] [address] [place] [address] Dr. Cintia Durán Covid-19 PCR ([facility])on SARS-CoV-2 (COVID-19) RNA NGUYEN+probe Ql (Unsp spec) Detected Critically abnormal NOT DETECTED [facility] Comment on above: Result Comment: This test is not yet approved or cleared by the [place] FDA. When there are no FDA-approved or cleared tests available, and other criteria are met, FDA can make tests available under an emergency access mechanism called an Emergency Use Authorization (EUA). The EUA for this test is supported by the Research Program Manager of Health and Human Service's declaration that [...] used). Performed By: #### C VDTBH #### [facility] [address] [place] [address] Dr. Cintia Durán Vital Signs Date Time Vital Sign Value Performing Clinician Facility 07-13-2023 11:30-0500 Body height 176.53 cm Miguel Angel Mays Other [facility] Other 07-13-2023 11:30-0500 Body mass index (BMI) [Ratio] 28.85 kg/m2 Miguel Angel Mays Other [facility] Other 07-13-2023 11:30-0500 Body weight 89.9 kg Miguel Angel Mays Other [facility] Other 07-13-2023 11:30-0500 Diastolic blood pressure 76 mm[Hg] Miguel Angel Davon Other [facility] Other 07-13-2023 11:30-0500 Respiratory rate 12 /min Miguel Angel Davon Other [facility] Other 07-13-2023 11:30-0500 Systolic blood pressure 134 mm[Hg] Miguel Angel Mays Other [facility] Other Encounters Encounter Date Encounter Type Care Provider Facility Start: 07-13-2023 End: 07-13-2023 ambulatory Miguel Angel Mays Other [facility] Other Start: 07-13-2023 Encounter for genera l adult medical examination without abnormal findings Miguel Angel Mays [facility] Start: 07-13-2023 Periodic preventive med est patient 40-64yrs Miguel Angel Mays [facility] Start: 07-01-2022 Encounter for genera l adult medical examination without abnormal findings DR MIGUEL ANGEL MAYS [facility] Start: 06-23-2022 End: 06-24-[address] MIGUEL ANGEL MAYS Facility:[facility] Start: 06-23-2022 End: 06-24-2022 Encounter for general adult medical examination without abnormal findings DR MIGUEL ANGEL MAYS Facility:[facility] Start: 06-01-2022 End: 06-01-2022 ambulatory YAYO BOYKIN Facility:[facility] Start: 05-13-2022 End: 05-14-[address] DAVON HECK Facility:[facility] Start: 01-10-2022 End: 01-11-[address] MIGUEL ANGEL MAYS Facility:[facility] Procedures Date Procedure Procedure Detail Performing Clinician Start: 06-23-[address] KWONG [facility] [place] Comment on above: Performed By: #### P [facility] #### [facility] [address] [address] [address] Cintia Durán Payers Date Payer Category Payer Unknown [id number] 1965 Unknown [id number] 2.16.84 [id number] 1965 Unknown [id number] 2.16.84 [id number] 1965 Unknown [id number] [id number] [id number] 1960 Self-pay [id number] [facility] [id number] Unknown [id number] [id number] Social History Date Type Detail Facility Sex Assigned At [facility] Other Evaluation note 07-13-2023 Note Date & Type Note Facility 07-13-2023 Evaluation note Encounter Date Diagnosis Assessment Notes Jul, Wellness examination (ICD-10 - Z00.00) Healthy diet and exercise. Reviewed age-appropriate preventive testing recommended. Jul, Precordial pain (ICD-10 - R07.2) IFG, HLD and family hx of CAD. Recommend stress testing w/ nuclear imaging Jul, IFG (impaired fasting glucose) (ICD-10 - R73.01) Healthy diet, exercise and weight loss. A1C yearly Jul, Increased prostate specific antigen (PSA) velocity (ICD-10 - R97.20) Increased PSA > 0.7 in year. Denies nocturia, polyuria, dysuria or hematuria Recommend treatment w/ antibiotics w/ f/u PSA/free. Referral to if fails to return to baseline Jul, Overweight (ICD-10 - E66.3) This patient has been instructed on a low-fat, high-fiber diet. They are instructed to reduce calories, portion sizes and snacks. It is recommended that they exercise for 30 minutes, 3-5 times weekly. Jul, Hypercholesterolemia (ICD-10 - E78.00) Instructed on diet and exercise with continued statin therapy.Discusse d the beneficial effects of lowering cholesterol in reducing the risk for cerebrovascular and cardiovascular disease. Jul, Stage 3a chronic kidney disease (ICD-10 - N18.31) The patient is instructed on adequate control of hypertension and diabetes, if appropriate. They are also educated on the associated risks of NSAIDs and PPI use with kidney disease. They were instructed on adequate fluid balance and to avoid dehydration. Jul, Gastroesophageal reflux disease with esophagitis without hemorrhage (ICD-10 - K21.00) Avoid lying flat after eating. Avoid eating 2 hours prior to bedtime. Smaller, frequent meals may be better tolerated.Weight loss if overweight.PPI with any heartburn.Monito r for dysphagia. Jul, Screening PSA (prostate specific antigen) (ICD-10 - Z12.5) Yearly PEPITO and PSA [facility] Other History general Narrative - Reported Note Date & Type Note Facility History general Narrative - Reported Type Medical History Hyperlipidemia type II Medical History Obstructive sleep apnea Medical History Gastroesophageal ref lux disease with esophagitis without hemorrhage Hospitalization History see surgical history [facility] Other Summary Purpose Family History No Family History Records Found Advance Directives No Advanced Directives Records Found Additional Source Comments (unrecognized sect ion and content) No Status Records Found INFORMATION SOURCE (unrecogn ized section and content) DATE CREATED AUTHOR 07/01/2022 [facility] REASON FOR VISIT (unrecogniz ed section and content) Wellness FOR RECORDS PERTAINING TO PATIENTS WHO ARE [...] BE BASED ON THE PRIMARY CLINICAL RECORDS. [employer] provides no warranty or guarantee of the accuracy or completeness of information in this document.
--- NOTE | 2023-07-15 13:12 | PM.STRESS ---
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 He has as a positive family history with both parents having coronary disease. Primary risk factors include hyperlipidemia] Resting 12 - Lead Electrocardiogram: Normal sinus rhythm with a ventricular rate of 66 bpm. The WI interval is 0.16, QRS 0.10 and the QT is 0.36, all within normal limits. There are no pathologic Q waves and only nonspecific ST-T wave changes. Stress Test: Protocol: [Hudson protocol] Exercise Capacity: [Patient demonstrated above average exercise capacity. He exercised for seven minutes achieving a heart rate of 160 bpm which is equivalent to ninety percent maximum predicted heart rate. Patient exercised into stage III of this protocol which is equivalent to 3.4 miles per hour fourteen percent grade in 10.1 METs units.] Blood Pressure Response: [Patient had a normal blood pressure response to exercise. His resting blood pressure was 07/08/1978 increasing to a peak of 146/84 then gradually returning to baseline during the recovery phase.] Rhythm: [During exercise the patient remained in sinus rhythm without ventricular ectopy.] ST - Response: [At peak exercise there were slight J-point depression with upsloping ST segments easily returning to baseline prior to 0.08 seconds.] Patient Response: [During exercise the patient denied chest pain or severe dyspnea. Interpretation: During exercise there was no objective evidence of myocardial ischemia. He demonstrated normal heart rate and blood pressure response to exercise. He demonstrated above average exercise capacity. His Barnes treadmill score was seven placing him in the low risk category. Cardiolite was injected with images in interpretation pending
== END 2023-07-15 10:59 | disposition home or self-care (01) ==
LOC: NM 10:58
PROVIDERS: PCP Internal Medicine; Visit Provider Internal Medicine
DX: R07.2 Precordial pain (principal); Z82.49 Family history of ischemic heart disease and other diseases of the circulatory system; E78.00 Pure hypercholesterolemia, unspecified; R73.01 Impaired fasting glucose
CPT/HCPCS: 78452; 93017; A9500

== ENCOUNTER 2023-09-07 08:59 | Outpatient (OUT) | payer BC, SELFPAY ==
--- OUTSIDE RECORDS SUMMARY | 2023-09-07 09:04 | XMS_ITS | CCD ---
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 Name Role Phone DAVON, DR CHA Admitting [...] (1 source) moxifloxacin Drug Allergy 7 [facility] (3 sources) moxifloxacin Drug Allergy Unknown [facility] Other Medications Current Medications Medication Drug Class(es) Dates Sig (Normalized) Sig (Original) pantoprazole 40 mg delayed release oral tablet (3 sources) Proton Pump Inhibitor take 1 tablet by mouth every twenty-four hours Protonix 40 MG 1 tablet Orally Once a day Active simvastatin 20 mg oral tablet (3 sources) HMG-CoA Reductase Inhibitor take 1 tablet by mouth once daily in the evening Simvastatin 20 MG TAKE 1 TABLET BY MOUTH EVERY DAY IN THE EVENING Active sulfamethoxazole 800 mg / trimethoprim 160 mg oral tablet (3 sources) Dihydrofolate Reductase Inhibitor Antibacterial, Sulfonamide Antimicrobial Start: 07-13-2023 Bactrim DS 800-160 MG as directed Orally Twice a day for 21 days Jul, Active Problems Active Problems Problem Classification Problem Date Documented Da te Episodic/Chronic Chronic kidney disease (5 sources) Chronic kidney disease stage 3A ; Translations: [Stage 3a chronic kidney disease] Chronic Diabetes mellitus without complication (1 source) Impaired fasting glucose Episodic Disorders of lipid metabolism (7 sources) Pure hypercholesterolemi a; 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] Chronic Esophageal disorders (3 sources) Gastro-esophageal reflux disease with esophagitis; Translations: [Gastroesophageal reflux disease with esophagitis without hemorrhage] Chronic Malaise and fatigue (4 sources) Other fatigue; Translations: [OTHER FATIGUE] Onset: 06-01-2022 Episodic Nonspecific chest pain (1 source) Precordial pain Episodic Other nutritional; endocrine; and metabolic disorders (1 source) Overweight Episodic Other screening for suspected conditions (not mental disorders or infectious disease) (4 sources) Encounter for screening for malignant neoplasm of prostate; Translations: [Elevated prostate specific antigen [PSA]] Onset: 07-01-2022 Episodic Other upper respiratory disease (1 source) Nasal congestion; Translations: [NASAL CONGESTION] Onset: 06-04-2022 Episodic Residual codes; unclassified (3 sources) Obstructive sleep apnea syndrome; Translations: [Obstructive sleep [...] 06-23-2022 BASO # 0.0 103/ul Normal 0.0-0.1 [facility] Comment on above: Performed By: #### C BC #### [facility] [address] [address] [address] Cintia Durán Basophils/100 WBC (Bld) 0.7 % Normal 0.2-2.0 [facility] Comment on above: Performed By: #### C BC #### [facility] [address] [place] [address] Dr. Cintia Durán EO # 0.2 103/ul Normal 0.0-0.7 [facility] Comment on above: Performed By: #### C BC #### [facility] [address] [place] [address] Dr. Cintia Durán Eosinophils/100 WBC (Bld) 2.7 % Normal 0.9-7.0 [facility] Comment on above: Performed By: #### C BC #### [facility] [address] [place] [address] Dr. Cintia Durán Erythrocyte distribution width (RBC) [Ratio] 12.4 % Normal 11.0-15.0 [facility] Comment on above: Performed By: #### C BC #### [facility] [address] [place] [address] Dr. Cintia Durán Hematocrit (Bld) [Volume fraction] 42.7 % Normal 42.0-54.0 [facility] Comment on above: Performed By: #### C BC #### [facility] [address] [place] [address] Dr. Cintia Durán Hemoglobin (Bld) [Mass/Vol] 14.0 g/dL Normal 14.0-18.0 [facility] Comment on above: Performed By: #### C BC #### [facility] [address] [place] [address] Dr. Cintia Durán IG # 0.02 10e3/ul Normal 0.00-0.03 [facility] Comment on above: Performed By: #### C BC #### [facility] [address] [place] [address] Dr. Cintia Durán IG % 0.4 % Normal 0.0-0.5 [facility] Comment on above: Performed By: #### C BC #### [facility] [address] [place] [address] Dr. Cintia Durán LYMPH # 2.2 103/ul Normal 1.2-3.8 [facility] Comment on above: Performed By: #### C BC #### [facility] [address] [place] [address] Dr. Cintia Durán Lymphocytes/100 WBC (Bld) 38.8 % Normal 20.5-60.0 [facility] Comment on above: Performed By: #### C BC #### [facility] [address] [place] [address] Dr. Cintia Durán MANUAL DIFF REQ NO Normal [facility] Comment on above: Performed By: #### C BC #### [facility] [address] [place] [address] Dr. Cintia Durán MCH (RBC) [Entitic mass] 31.0 pg Normal 25.9-34.0 [facility] Comment on above: Performed By: #### C BC #### [facility] [address] [place] [address] Dr. Cintia Durán MCHC (RBC) [Mass/Vol] 32.8 g/dL Normal 29.9-35.2 [facility] Comment on above: Performed By: #### C BC #### [facility] [address] [place] [address] Dr. Cintia Durán MCV (RBC) [Entitic vol] 94.7 fL Critically high 80.0-94.0 [facility] Comment on above: Performed By: #### C BC #### [facility] [address] [place] [address] Dr. Cintia Durán MONO # 0.5 103/ul Normal 0.3-0.8 [facility] Comment on above: Performed By: #### C BC #### [facility] [address] [place] [address] Dr. Cintia Durán Monocytes/100 WBC (Bld) 9.6 % Normal 1.7-12.0 [facility] Comment on above: Performed By: #### C BC #### [facility] [address] [place] [address] Dr. Cintia Durán NEUT # 2.7 103/ul Normal 1.4-6.5 [facility] Comment on above: Performed By: #### C BC #### [facility] [address] [address] [address] Cintia Durán Neutrophils/100 WBC (Bld) 47.8 % Normal 43.0-75.0 [facility] Comment on above: Performed By: #### C BC #### [facility] [address] [address] [address] Cintia Durán Platelet mean volume (Bld) [Entitic vol] 9.7 fL Normal 9.5-13.5 [facility] Comment on above: Performed By: #### C BC #### [facility] [address] [address] [address] Cintia Durán PLT 261 103/ul Normal 150-450 [facility] Comment on above: Performed By: #### C BC #### [facility] [address] [place] [address] Dr. Cintia Durán RBC 4.51 106/ul Critically low 4.70-6.[address] [facility] Comment on above: Performed By: #### C BC #### [facility] [address] [address] [address] Cintia Durán WBC 5.7 103/ul Normal 4.0-11.0 [facility] Comment on above: Performed By: #### C BC #### [facility] [address] [place] [address] Dr. Cintia Durán GLYCOHEMOGLOBIN A1Con 2021 ADA RECOMMENDATION SEE BELOW Normal [facility] Comment on above: Result Comment: ADA RECOMMENDED LIMIT 4.0 - 6.0 ADA THERAPEUTIC TARGET < 7.0 ACTION SUGGESTED > 7.0 Performed By: #### A 1C #### [facility] [address] [address] [address] Cintia Durán Glucose [Mass/Vol] 111 mg/dL Normal [facility] Comment on above: Performed By: #### A 1C #### [facility] [address] [place] [address] Dr. Cintia Durán HbA1c (Bld) [Mass fraction] 5.5 % Normal 4.5-6.2 [facility] Comment on above: Performed By: #### A 1C #### [facility] [address] [address] [address] Cintia Durán LIPID PROFILEon 06-23-2022 CHOL-HDL RATIO NORM SEE BELOW Normal [facility] Comment on above: Result Comment: 3.3 - 4.4 LOW RISK 4.4 - 7.1 AVERAGE RISK 7.1 - 11.0 MODERATE RISK >11.0 HIGH RISK Performed By: #### L IPID, CMP, TSH #### [facility] [address] [address] [address] Cintia Durán Cholesterol [Mass/Vol] 249 mg/dL Critically high <=200 [facility] Comment on above: Performed By: #### L IPID, CMP, TSH #### [facility] [address] [address] [address] Cintia Durán Cholesterol in HDL [Mass/Vol] 79 mg/dL Critically high 40-60 [facility] Comment on above: Performed By: #### L IPID, CMP, TSH #### [facility] [address] [address] [address] Cintia Durán Cholesterol in LDL [Mass/Vol] 149.2 mg/dL Normal [facility] Comment on above: Performed By: #### L IPID, CMP, TSH #### [facility] [address] [address] [address] Cintia Durán Cholesterol.total/Ch olesterol in HDL [Mass ratio] 3.2 {ratio} Normal [facility] Comment on above: Performed By: #### L IPID, CMP, TSH #### [facility] [address] [address] [address] Cintia Durán HDL NORMAL > or = 60 mg/dl - LOW CARDIOVASCULAR RISK <40 mg/dl - HIGH CARDIOVASCULAR RISK Normal [facility] Comment on above: Performed By: #### L IPID, CMP, TSH #### [facility] [address] [address] [address] Cintia Durán LDL CALC NORMAL SEE BELOW Normal [facility] Comment on above: Result Comment: <100 mg/dl OPTIMAL 100 - 129 mg/dl NEAR OR ABOVE OPTIMAL 130 - 159 mg/dl BORDERLINE HIGH 160 - 189 mg/dl HIGH >190 mg/dl VERY HIGH Performed By: #### L IPID, CMP, TSH #### [facility] [address] [address] [address] Cintia Durán Triglyceride [Mass/Vol] 104 mg/dL Normal <=150 [facility] Comment on above: Performed By: #### L IPID, CMP, TSH #### [facility] [address] [address] [address] Cintia Durán VLDL CALC 20.8 mg/dL Normal [facility] Comment on above: Performed By: #### L IPID, CMP, TSH #### [facility] [address] [address] [address] Cintia Durán PROF 14(COMP METB)on 022 Albumin [Mass/Vol] 4.4 g/dL Normal 3.4-5.0 [facility] Comment on above: Performed By: #### L IPID, CMP, TSH #### [facility] [address] [place] [address] Dr. Cintia Durán Albumin/Globulin [Mass ratio] 1.2 {ratio} Normal [facility] Comment on above: Performed By: #### L IPID, CMP, TSH #### [facility] [address] [place] [address] Dr. Cintia Durán ALP [Catalytic activity/Vol] 68 U/L Normal 46-116 [facility] Comment on above: Performed By: #### L IPID, CMP, TSH #### [facility] [address] [place] [address] Dr. Cintia Durán ALT [Catalytic activity/Vol] 31 U/L Normal 16-63 [facility] Comment on above: Performed By: #### L IPID, CMP, TSH #### [facility] [address] [place] [address] Dr. Cintia Durán Anion gap [Moles/Vol] 12.4 mmol/L Normal [facility] Comment on above: Performed By: #### L IPID, CMP, TSH #### [facility] [address] [address] [address] Cintia Durán AST [Catalytic activity/Vol] 26 U/L Normal 15-37 [facility] Comment on above: Performed By: #### L IPID, CMP, TSH #### [facility] [address] [address] [address] Cintia Durán Bilirubin [Mass/Vol] 0.4 mg/dL Normal 0.2-1.0 [facility] Comment on above: Performed By: #### L IPID, CMP, TSH #### [facility] [address] [address] [address] Cintia Durán Calcium [Mass/Vol] 9.6 mg/dL Normal 8.5-10.1 [facility] Comment on above: Performed By: #### L IPID, CMP, TSH #### [facility] [address] [place] [address] Dr. Cinita Durán Chloride [Moles/Vol] 100 mmol/L Normal 98-107 [facility] Comment on above: Performed By: #### L IPID, CMP, TSH #### [facility] [address] [address] [address] Cintia Durán CO2 [Moles/Vol] 27.9 mmol/L Normal 21.0-32.0 [facility] Comment on above: Performed By: #### L IPID, CMP, TSH #### [facility] [address] [address] [address] Cintia Durán Creatinine [Mass/Vol] 1.00 mg/dL Normal 0.70-1.30 [facility] Comment on above: Performed By: #### L IPID, CMP, TSH #### [facility] [address] [address] [address] Cintia Durán EGFR-AF KOSOVAN >60 Normal >=60 [facility] Comment on above: Performed By: #### L IPID, CMP, TSH #### [facility] [address] [place] [address] Dr. Cintia Durán EGFR-NON AF KOSOVAN >60 Normal >=60 [facility] Comment on above: Performed By: #### L IPID, CMP, TSH #### [facility] [address] [place] [address] Dr. Cintia Durán Globulin (S) [Mass/Vol] 3.7 g/dL Normal [facility] Comment on above: Performed By: #### L IPID, CMP, TSH #### [facility] [address] [place] [address] Dr. Cintia Durán Glucose [Mass/Vol] 95 mg/dL Normal 74-106 [facility] Comment on above: Performed By: #### L IPID, CMP, TSH #### [facility] [address] [place] [address] Dr. Cintia Durán Potassium [Moles/Vol] 4.3 mmol/L Normal 3.5-5.1 [facility] Comment on above: Performed By: #### L IPID, CMP, TSH #### [facility] [address] [place] [address] Dr. Cintia Durán Protein [Mass/Vol] 8.1 g/dL Normal 6.4-8.[address] [facility] Comment on above: Performed By: #### L IPID, CMP, TSH #### [facility] [address] [place] [address] Dr. Cintia Durán Sodium [Moles/Vol] 136 mmol/L Normal 136-145 [facility] Comment on above: Performed By: #### L IPID, CMP, TSH #### [facility] [address] [place] [address] Dr. Cintia Durán Urea nitrogen [Mass/Vol] 16.0 mg/dL Normal 7.0-18.0 [facility] Comment on above: Performed By: #### L IPID, CMP, TSH #### [facility] [address] [place] [address] Dr. Cintia Durán Urea nitrogen/Creatinine [Mass ratio] 16.0 mg/mg Normal [facility] Comment on above: Performed By: #### L IPID, CMP, TSH #### [facility] [address] [place] [address] Dr. Cintia Durán TSHon 06-23-2022 TSH 1.975 uIU/mL Normal 0.358-3.740 [facility] Comment on above: Performed By: #### L IPID, CMP, TSH #### [facility] [address] [address] [address] Cintia Durán Covid-19 PCR ([facility])on 05-06 SARS-CoV-2 (COVID-19) RNA NGUYEN+probe Ql (Unsp spec) Not detected Normal NOT DETECTED [facility] Comment on above: Result Comment: When diagnostic [...] for this test is supported by the [place] of Health and Human Service's declaration that [...] used). Performed By: #### C VDTBH #### [facility] [address] [place] [address] Dr. Cintia Durán INFLUENZA A AND B AGon 06-01 INFLUANEGH SEE BELOW Normal [facility] Comment on above: Result Comment: Nega tive for Flu A protein angiten. Infection due to Flu A cannot be ruled out. Flu A angiten in the sample may be below the detection limit of the test. Performed By: #### I NFLUAB #### [facility] [address] [place] [address] Dr. Cintia Durán INFLUBNEG SEE BELOW Normal [facility] Comment on above: Result Comment: Nega tive for Flu B protein antigen. Infection due to Flu B cannot be ruled out. Flu B antigen in the sample may be below the detection limit of the test. Performed By: #### I NFLUAB #### [facility] [address] [place] [address] Dr. Cintia Durán INFLUENZA A AG Negative Normal NEGATIVE SEE COMMENT [facility] Comment on above: Performed By: #### I NFLUAB #### [facility] [address] [place] [address] Dr. Cintia Durán INFLUENZA B AG Negative Normal NEGATIVE SEE COMMENT [facility] Comment on above: Performed By: #### I NFLUAB #### [facility] [address] [place] [address] Dr. Cintia Durán INTERNAL CONTROLS Within Normal Limits Normal Within Normal Limits [facility] Comment on above: Performed By: #### I NFLUAB #### [facility] [address] [place] [address] Dr. Cintia Durán Covid-19 PCR (CVDTB)on SARS-CoV-2 (COVID-19) RNA NGUYEN+probe Ql (Unsp spec) Detected Critically abnormal NOT DETECTED [facility] Comment on above: Result Comment: This test is not yet approved or cleared by the [place] FDA. When there are no FDA-approved or cleared tests available, and other criteria are met, FDA can make tests available under an emergency access mechanism called an Emergency Use Authorization (EUA). The EUA for this test is supported by the [place] of Health and Human Service's declaration that [...] used). Performed By: #### C VDTBH #### [facility] [address] [place] [address] Dr. Cintia Durán Vital Signs Date Time Vital Sign Value Performing Clinician Facility 07-13-2023 11:30-0500 Body height 176.53 cm Miguel Angel Mays Other [facility] Other 07-13-2023 11:30-0500 Body mass index (BMI) [Ratio] 28.85 kg/m2 Miguel Angel Davon Other [facility] Other 07-13-2023 11:30-0500 Body weight 89.9 kg Miguel Angel Davon Other [facility] Other 07-13-2023 11:30-0500 Diastolic blood pressure 76 mm[Hg] Miguel Angel Mays Other [facility] Other 07-13-2023 11:30-0500 Respiratory rate 12 /min Miguel Angel Davon Other [facility] Other 07-13-2023 11:30-0500 Systolic blood pressure 134 mm[Hg] Miguel Angel Dav[facility] Other [facility] Other Encounters Encounter Date Encounter Type Care Provider Facility Start: 08-04-2023 End: 08-04-2023 ambulatory Miguel Angel Mays Other [facility] Other Start: 08-04-2023 Telephone encounter [facility] Start: 07-13-2023 End: 07-13-2023 ambulatory Miguel Angel Mays Other [facility] Other Start: 07-13-2023 Encounter for genera l adult medical examination without abnormal findings Miguel Angel Mays [facility] Start: 07-13-2023 Periodic preventive med est patient 40-64yrs Miguel Angel Mays [facility] Start: 07-13-2023 Telephone encounter [facility] Start: 07-01-2022 Encounter for genera l adult medical examination without abnormal findings DR MIGUEL ANGEL MAYS [facility] Start: 06-23-2022 End: 06-24-[address] MIGUEL ANGEL MAYS Facility:[facility] Start: 06-23-2022 End: 06-24-2022 Encounter for general adult medical examination without abnormal findings DR MIGUEL ANGEL MAYS Facility:[facility] Start: 06-01-2022 End: 06-01-2022 ambulatory YAYO BOKYIN Facility:[facility] Start: 05-13-2022 End: 05-14-[address] [facility] HECK Facility:[facility] Start: 01-10-2022 End: 01-11-[address] MIGUEL ANGEL MAYS Facility:[facility] Procedures Date Procedure Procedure Detail Performing Clinician Start: 06-23-[address] KWONG [facility] Comment on above: Performed By: #### P [facility] #### [facility] [address] [place] [address] Dr. Cintia Durán Payers Date Payer Category Payer Unknown [id number] 1965 Unknown [id number] 2.16.84 [id number] 1965 Unknown [id number] 2.16.84 [id number] 1965 Unknown [id number] 2.16.84 [id number] 1960 Self-pay [id number] Rust [id number] Unknown [id number] 2.16.84 [id number] Social History Date Type Detail Facility Sex Assigned At [facility] Other Evaluation note 08-04-2023 Note Date & Type Note Facility 08-04-2023 Evaluation note Encounter Date Diagnosis Assessment Notes Jul, Elevated PSA (ICD-10 - R97.20) Jul, Chronic kidney disease (CKD) stage G1/A3, glomerular filtration rate (GFR) equal to or greater than 90 mL/min/1.73 square meter and albuminuria creatinine ratio greater than 300 mg/g (ICD-10 - N18.1) [facility] Other Evaluation note 07-13-2023 Note Date & [...] (ICD-10 - Z12.5) Yearly PEPITO and PSA [facility] Other Evaluation note Note Date & Type Note Facility Evaluation note No Information [facility] Other History general Narrative - Reported Note Date & Type Note Facility History general Narrative - Reported Type Medical History Hyperlipidemia type II Medical History Obstructive sleep apnea Medical History Gastroesophageal ref lux disease with esophagitis without hemorrhage Hospitalization History see surgical history [facility] Other Summary Purpose Family History No Family History Records Found Advance Directives No Advanced Directives Records Found Additional Source Comments (unrecognized sect ion and content) No Status Records Found INFORMATION SOURCE (unrecogn ized section and content) DATE CREATED AUTHOR 07/01/2022 The [facility] REASON FOR VISIT (unrecogniz ed section and content) [facility] FOR RECORDS PERTAINING TO PATIENTS WHO ARE [...] BE BASED ON THE PRIMARY CLINICAL RECORDS. [facility]. provides no warranty or guarantee of the accuracy or completeness of information in this document.
[2023-09-07 09:37] LABS: Anion Gap 12.3; BUN Creatinine Ratio 13.9; Calcium 8.9 mg/dL (8.5-10.1); Carbon Dioxide 29.9 mmol/L (21.0-32.0); Chloride 103 mmol/L (98-107); Estimated GFR (African America >60 (>=60); Estimated GFR (Non-African Ame >60 (>=60); Glucose 88 mg/dL (74-106); Potassium 4.2 mmol/L (3.5-5.1); Sodium 141 mmol/L (136-145)
[2023-09-07 10:56] LABS: Bilirubin Urine NEGATIVE (NEGATIVE); Blood Urine NEGATIVE (NEGATIVE); Clarity Urine CLEAR (CLEAR); Color Urine YELLOW (YELLOW); Glucose Urine UA NEGATIVE (NEGATIVE); Ketones Urine NEGATIVE (NEGATIVE); Leukocyte Esterase Urine NEGATIVE (NEGATIVE); Nitrite Urine NEGATIVE (NEGATIVE); Protein Urine NEGATIVE (NEG/TRACE); Specific Gravity Urine 1.025 (1.005-1.025); Urobilinogen Urine 0.2 EU/dL (0.2-1.0); pH Urine 5.5 (5.0-9.0)
[2023-09-07 11:04] LABS: Bacteria Urine NONE SEEN #/HPF (NONE SEEN); Crystals Seen? None Seen #/HPF (None Seen); Mucus Urine NONE SEEN (NONE SEEN); RBC Urine 0-2 #/HPF (0-2); Squamous Epithelial Cell Urine NONE SEEN #/LPF (NONE/RARE); WBC Urine 0-2 #/HPF (NONE SEEN)
[2023-09-07 11:05] LABS: Cast Seen? NONE SEEN #/LPF (NONE SEEN); Urine Culture Indicated ALREADY ORDERED
[2023-09-08 08:12] LABS: PSA, Free 0.29 ng/mL; Prostate Specific Ag 0.8 ng/mL (0.0-4.0)
== END 2023-09-07 09:00 | disposition home or self-care (01) ==
LOC: LAB 08:59
PROVIDERS: PCP Internal Medicine; Visit Provider Internal Medicine
DX: N18.1 Chronic kidney disease, stage 1 (principal); R97.20 Elevated prostate specific antigen [PSA]
CPT/HCPCS: 36415; 80048; 81001; 84153; 84154; 87086

== ENCOUNTER 2024-11-28 14:04 | Outpatient (OUT) | payer BC, SELFPAY ==
[2024-11-28 14:37] LABS: Basophils Percent Auto 0.6 % (0.2-2.0); Eosinophils Absolute Auto 0.1 10^3/uL (0.0-0.7); Eosinophils Percent Auto 1.4 % (0.9-7.0); Hematocrit 40.6 % (42.0-54.0); Hemoglobin 13.9 g/dL (14.0-18.0); Immature Granulocytes Abs Auto 0.02 10^3/uL (0.00-0.03); Immature Granulocytes Pct Auto 0.4 % (0.0-0.5); Lymphocytes Absolute Auto 1.8 10^3/uL (1.2-3.8); Lymphocytes Percent Auto 36.8 % (20.5-60.0); Mean Corpuscular HGB Conc 34.2 g/dL (29.9-35.2); Mean Corpuscular Hemoglobin 32.2 pg (25.9-34.0); Mean Platelet Volume 9.6 fL (9.5-13.5); Monocytes Absolute Auto 0.6 10^3/uL (0.3-0.8); Monocytes Percent Auto 11.5 % (1.7-12.0); Neutrophils Absolute Auto 2.4 10^3/uL (1.4-6.5); Neutrophils Percent Auto 49.3 % (43.0-75.0); Platelet Count 231 10^3/uL (150-450); Red Blood Count 4.32 10^6/uL (4.70-6.10); Red Cell Distribution Width 12.2 % (11.0-15.0)
[2024-11-28 14:58] LABS: Alanine Aminotransferase 35 U/L (16-63); Albumin Globulin Ratio 1.3; Albumin Level 4.1 g/dL (3.4-5.0); Alkaline Phosphatase 74 U/L (46-116); Anion Gap 10.7; Aspartate Amino Transferase 28 U/L (15-37); BUN Creatinine Ratio 13.2; Bilirubin Total 0.5 mg/dL (0.2-1.0); Calcium 9.5 mg/dL (8.5-10.1); Carbon Dioxide 30.4 mmol/L (21.0-32.0); Chloride 104 mmol/L (98-107); Chol HDL Ratio 3.1; Cholesterol 226 mg/dL (<=200); Estimated GFR (African America >60 (>=60 mL/min/1.73m^2); Estimated GFR (Non-African Ame >60 (>=60 mL/min/1.73m^2); Globulin 3.2 g/dL; Glucose 90 mg/dL (74-106); HDL Cholesterol 74 mg/dL (40-60); Potassium 4.1 mmol/L (3.5-5.1); Sodium 141 mmol/L (136-145); Thyroid Stimulating Hormone 1.413 uIU/mL (0.358-3.740); Total Protein 7.3 g/dL (6.4-8.2); Triglycerides 96 mg/dL (<=150); VLDL CHOLESTEROL 19.2 mg/dL
[2024-11-28 15:43] LABS: Estimated Average Glucose 123 mg/dL; Glycohemoglobin A1C 5.9 % (4.5-6.2)
[2024-11-28 15:51] LABS: Prostate Specific Antigen Scrn 1.28 ng/mL (<=4.00)
--- OUTSIDE RECORDS SUMMARY | 2024-11-28 18:34 | XMS_ITS | CCD ---
Author Organization [facility] Care Team Providers Care Photostat Operator Name Role Phone DAVON, DR CHA Admitting Unavailable DAVON, DR CHA Attending Unavailable DAVON, DR CHA Primary Care Unavailable DAVON, DR CHA Consulting Unavailable DAVON, DR CHA Primary Care Unavailable SINDI CARLOS Admitting Unavailable TERRANCE, SINDI HILL Attending Unavailable SINDI CARLOS Consulting Unavailable MARIA R, DR MAYS Admitting Unavailable MARIA R, DR MAYS Attending Unavailable DAVON, DR CHA Primary Care Unavailable MARIA R, DR MAYS Consulting Unavailable YAYO BOYKIN Admitting Unavailable YAYO BOYKIN Attending Unavailable DAVON, DR CHA Primary Care Unavailable YAYO BOYKIN Consulting Unavailable Miguel Angel Mays Unavailable Hal VELEZ Attending Unavailable Miguel Angel Mays DO Primary Care Provider MIGUEL ANGEL MAYS Primary Care Unavailable SELF, SELF Referring Unavailable DAVID DEVI Attending Unavailable Allergies Allergy Classification Reported Allergen(s) Allergy Type Date of Onset Reaction(s) Facility (1 source) moxifloxacin Drug Allergy [address] [facility] Repository (3 sources) moxifloxacin Drug Allergy Unknown [facility] Other Medications Current Medications Medication Drug Class(es) Dates Sig (Normalized) Sig (Original) pantoprazole 40 mg delayed release oral tablet (4 sources) Proton Pump Inhibitor Start: 08-08-2024 take 1 tablet by mouth once daily Pantoprazole 40 MG Tab tablet Indications: Peyronie's disease Take 1 tablet by mouth daily. 08/08/2024 Active take 1 tablet by jeanna th every twenty-four hours Protonix 40 MG 1 tablet Orally Once a day Active simvastatin 4 mg/ml oral suspension (4 sources) HMG-CoA Reductase Inhibitor Simvastatin 20 MG/5M L Suspension Indications: Peyronie's disease Take by mouth. 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 Chronic Other nutritional; endocrine; and metabolic disorders (1 [...] Test Name Value Interpretation Reference Range Facility POCT URINALYSIS DIPSTICK AUT OMATED W/O SCOPon 09-19-2024 Amorphous sediment LM Ql (Urine sed) [facility] Appearance (U) clear [facility] Bacteria LM Ql (Urine sed) [facility] Bilirubin Ql (U) Negative [facility] Casts LM.LPF (Urine sed) [#/Area] [facility] Color (U) yellow [facility] Crystals LM Nom (Urine sed) [facility] Epithelial cells.squamous LM.HPF (Urine sed) [#/Area] [facility] Flow cytometry specialist review Darren (Unsp spec) [Interp] [facility] Glucose Auto test strip (U) [Mass/Vol] Negative mg/dL [facility] Ketones [Mass/Vol] Negative mg/dL [facility] Leukocyte esterase Qn (U) [facility] Leukocyte esterase Test strip Ql (U) Negative [facility] Nitrite Ql (U) Negative [facility] pH (U) 6 [pH] 5 - 7 [facility] Protein Ql (U) Negative mg/dL [facility] RBC LM.HPF (Urine sed) [#/Area] [facility] RBC Ql (U) Negative [facility] Specific gravity (U) [Rel density] 1.001 - 1.035 [facility] Transitional cells LM Ql (Urine sed) [facility] Urobilinogen Qn (U) 0.2 [facility] WBC LM.HPF (Urine sed) [#/Area] [facility] CBC AUTO DIFFon 06-23-2022 BASO # 0.0 103/ul Normal 0.0-0.1 [facility] Comment on above: Performed By: #### C BC #### [facility] [address] [address] [address] Cintia Durán Basophils/100 WBC (Bld) 0.7 % Normal 0.2-2.0 [facility] Comment on above: Performed By: #### C BC #### [facility] [address] [place] [address] Dr. Cintia Durán EO # 0.2 103/ul Normal 0.0-0.[address] [facility] Comment on above: Performed By: #### C BC #### [facility] [address] [place] [address] Dr. Cintia Durán Eosinophils/100 WBC (Bld) 2.7 % Normal 0.9-7.[address] [facility] Comment on above: Performed By: #### C BC #### [facility] [address] [place] [address] Dr. Cintia Durán Erythrocyte distribution width (RBC) [Ratio] 12.4 % Normal 11.0-15.0 [facility] Comment on above: Performed By: #### C BC #### [facility] [address] [place] [address] Dr. Cintia Durán Hematocrit (Bld) [Volume fraction] 42.7 % Normal 42.0-54.0 [facility] Comment on above: Performed By: #### C BC #### [facility] [address] [place] [address] Dr. Cintia Durán Hemoglobin (Bld) [Mass/Vol] 14.0 g/dL Normal 14.0-18.0 [facility] Comment on above: Performed By: #### C BC #### [facility] [address] [place] [address] Dr. Cintia Durán IG # 0.02 10e3/ul Normal 0.00-0.[address] [facility] Comment on above: Performed By: #### C BC #### [facility] [address] [place] [address] Dr. Cintia Durán IG % 0.4 % Normal 0.0-0.[address] [facility] Comment on above: Performed By: #### C BC #### [facility] [address] [place] [address] Dr. Cintia Durán LYMPH # 2.2 103/ul Normal 1.2-3.[address] [facility] Comment on above: Performed By: #### C BC #### [facility] [address] [place] [address] Dr. Cintia Durán Lymphocytes/100 WBC (Bld) 38.8 % Normal 20.5-60.[address] [facility] Comment on above: Performed By: #### C BC #### [facility] [address] [place] [address] Dr. Cintia Durán MANUAL DIFF REQ NO Normal [facility] Comment on above: Performed By: #### C BC #### [facility] [address] [place] [address] Dr. Cintia Durán MCH (RBC) [Entitic mass] 31.0 pg Normal 25.9-34.[address] [facility] Comment on above: Performed By: #### C BC #### [facility] [address] [place] [address] Dr. Cintia Durán MCHC (RBC) [Mass/Vol] 32.8 g/dL Normal 29.9-35.[address] [facility] Comment on above: Performed By: #### C BC #### [facility] [address] [place] [address] Dr. Cintia Durán MCV (RBC) [Entitic vol] 94.7 fL Critically high 80.0-94.[address] [facility] Comment on above: Performed By: #### C BC #### [facility] [address] [place] [address] Dr. Cintia Durán MONO # 0.5 103/ul Normal 0.3-0.[address] [facility] Comment on above: Performed By: #### C BC #### [facility] [address] [place] [address] Dr. Cintia Durán Monocytes/100 WBC (Bld) 9.6 % Normal 1.7-12.[address] [facility] Comment on above: Performed By: #### C BC #### [facility] [address] [place] [address] Dr. Cintia Durán NEUT # 2.7 103/ul Normal 1.4-6.[address] [facility] Comment on above: Performed By: #### C BC #### [facility] [address] [place] [address] Dr. Cintia Durán Neutrophils/100 WBC (Bld) 47.8 % Normal 43.0-75.0 [facility] Comment on above: Performed By: #### C BC #### [facility] [address] [address] [address] Cintia Durán Platelet mean volume (Bld) [Entitic vol] 9.7 fL Normal 9.5-13.5 [facility] Comment on above: Performed By: #### C BC #### [facility] [address] [address] [address] Cintia Durán PLT 261 103/ul Normal 150-[address] [facility] Comment on above: Performed By: #### C BC #### [facility] [address] [address] [address] Cintia Durán RBC 4.51 106/ul Critically low 4.70-6.10 [facility] Comment on above: Performed By: #### C BC #### [facility] [address] [address] [address] Cintia Durán WBC 5.7 103/ul Normal 4.0-11.0 [facility] Comment on above: Performed By: #### C BC #### [facility] [address] [place] [address] Dr. Cintia Durán GLYCOHEMOGLOBIN A1Con 2021 ADA RECOMMENDATION SEE BELOW Normal [facility] Comment on above: Result Comment: ADA RECOMMENDED LIMIT 4.0 - 6.0 ADA THERAPEUTIC TARGET < 7.0 ACTION SUGGESTED > 7.0 Performed By: #### A 1C #### [facility] [address] [place] [address] Dr. Cintia Durán Glucose [Mass/Vol] 111 mg/dL Normal [facility] Comment on above: Performed By: #### A 1C #### [facility] [address] [place] [address] Dr. Cintia Durán HbA1c (Bld) [Mass fraction] 5.5 % Normal 4.5-6.2 [facility] Comment on above: Performed By: #### A 1C #### [facility] [address] [address] [address] Cintia Durán LIPID PROFILEon 06-23-2022 CHOL-HDL RATIO NORM SEE BELOW Normal [facility] Comment on above: Result Comment: 3.3 - 4.4 LOW RISK 4.4 - 7.1 AVERAGE RISK 7.1 - 11.0 MODERATE RISK >11.0 HIGH RISK Performed By: #### L IPID, CMP, TSH #### [facility] [address] [address] [address] Cintia Durán Cholesterol [Mass/Vol] 249 mg/dL Critically high <=200 [facility] Comment on above: Performed By: #### L IPID, CMP, TSH #### [facility] [address] [place] [address] Dr. Cintia Durán Cholesterol in HDL [Mass/Vol] 79 mg/dL Critically high 40-60 [facility] Comment on above: Performed By: #### L IPID, CMP, TSH #### [facility] [address] [place] [address] Dr. Cintia Durán Cholesterol in LDL [Mass/Vol] 149.2 mg/dL Normal [facility] Comment on above: Performed By: #### L IPID, CMP, TSH #### [facility] [address] [place] [address] Dr. Cintia Durán Cholesterol.total/Ch olesterol in HDL [Mass ratio] 3.2 {ratio} Normal [facility] Comment on above: Performed By: #### L IPID, CMP, TSH #### [facility] [address] [place] [address] Dr. Cintia Durán HDL NORMAL > or = 60 mg/dl - LOW CARDIOVASCULAR RISK <40 mg/dl - HIGH CARDIOVASCULAR RISK Normal [facility] Comment on above: Performed By: #### L IPID, CMP, TSH #### [facility] [address] [place] [address] Dr. Cintia Durán LDL CALC NORMAL SEE BELOW Normal [facility] Comment on above: Result Comment: <100 mg/dl OPTIMAL 100 - 129 mg/dl NEAR OR ABOVE OPTIMAL 130 - 159 mg/dl BORDERLINE HIGH 160 - 189 mg/dl HIGH >190 mg/dl VERY HIGH Performed By: #### L IPID, CMP, TSH #### [facility] [address] [address] [address] Cintia Durán Triglyceride [Mass/Vol] 104 mg/dL Normal <=150 [facility] Comment on above: Performed By: #### L IPID, CMP, TSH #### [facility] [address] [address] [address] Cintia Durán VLDL CALC 20.8 mg/dL Normal [facility] Comment on above: Performed By: #### L IPID, CMP, TSH #### [facility] [address] [address] [address] Cintia Durán PROF 14(COMP METB)on 022 Albumin [Mass/Vol] 4.4 g/dL Normal 3.4-5.0 [facility] Comment on above: Performed By: #### L IPID, CMP, TSH #### [facility] [address] [address] [address] Cintia Durán Albumin/Globulin [Mass ratio] 1.2 {ratio} Normal [facility] Comment on above: Performed By: #### L IPID, CMP, TSH #### [facility] [address] [place] [address] Dr. Cintia Durán ALP [Catalytic activity/Vol] 68 U/L Normal 46-116 [facility] Comment on above: Performed By: #### L IPID, CMP, TSH #### [facility] [address] [address] [address] Cintia Durán ALT [Catalytic activity/Vol] 31 U/L Normal 16-63 [facility] Comment on above: Performed By: #### L IPID, CMP, TSH #### [facility] [address] [address] [address] Cintia Durán Anion gap [Moles/Vol] 12.4 mmol/L Normal [facility] Comment on above: Performed By: #### L IPID, CMP, TSH #### [facility] [address] [place] [address] Dr. Cintia Durán AST [Catalytic activity/Vol] 26 U/L Normal 15-37 [facility] Comment on above: Performed By: #### L IPID, CMP, TSH #### [facility] [address] [address] [address] Cintia Durán Bilirubin [Mass/Vol] 0.4 mg/dL Normal 0.2-1.0 [facility] Comment on above: Performed By: #### L IPID, CMP, TSH #### [facility] [address] [address] [address] Cintia Durán Calcium [Mass/Vol] 9.6 mg/dL Normal 8.5-10.1 [facility] Comment on above: Performed By: #### L IPID, CMP, TSH #### [facility] [address] [place] [address] Dr. Cintia Durán Chloride [Moles/Vol] 100 mmol/L Normal 98-107 [facility] Comment on above: Performed By: #### L IPID, CMP, TSH #### [facility] [address] [place] [address] Dr. Cintia Durán CO2 [Moles/Vol] 27.9 mmol/L Normal 21.0-32.0 [facility] Comment on above: Performed By: #### L IPID, CMP, TSH #### [facility] [address] [place] [address] Dr. Cintia Durán Creatinine [Mass/Vol] 1.00 mg/dL Normal 0.70-1.[address] [facility] Comment on above: Performed By: #### L IPID, CMP, TSH #### [facility] [address] [place] [address] Dr. Cintia Durán EGFR-AF PAPUA [place] >60 Normal >=60 [facility] Comment on above: Performed By: #### L IPID, CMP, TSH #### [facility] [address] [place] [address] Dr. Cintia Durán EGFR-NON AF PAPUA [place] >60 Normal >=60 [facility] Comment on above: Performed By: #### L IPID, CMP, TSH #### [facility] [address] [address] [address] Cintia Durán Globulin (S) [Mass/Vol] 3.7 g/dL Normal [facility] Comment on above: Performed By: #### L IPID, CMP, TSH #### [facility] [address] [place] [address] Dr. Cintia Durán Glucose [Mass/Vol] 95 mg/dL Normal 74-106 [facility] Comment on above: Performed By: #### L IPID, CMP, TSH #### [facility] [address] [place] [address] Dr. Cintia Durán Potassium [Moles/Vol] 4.3 mmol/L Normal 3.5-5.[address] [facility] Comment on above: Performed By: #### L IPID, CMP, TSH #### [facility] [address] [place] [address] Dr. Cintia Durán Protein [Mass/Vol] 8.1 g/dL Normal 6.4-8.2 [facility] Comment on above: Performed By: #### L IPID, CMP, TSH #### [facility] [address] [place] [address] Dr. Cintia Durán Sodium [Moles/Vol] 136 mmol/L Normal 136-145 [facility] Comment on above: Performed By: #### L IPID, CMP, TSH #### [facility] [address] [place] [address] Dr. Cintia Durán Urea nitrogen [Mass/Vol] 16.0 mg/dL Normal 7.0-18.0 [facility] Comment on above: Performed By: #### L IPID, CMP, TSH #### [facility] [address] [place] [address] Dr. Cintia Durán Urea nitrogen/Creatinine [Mass ratio] 16.0 mg/mg Normal [facility] Comment on above: Performed By: #### L IPID, CMP, TSH #### [facility] [address] [place] [address] Dr. Cintia Durán TSHon 06-23-2022 TSH 1.975 uIU/mL Normal 0.358-3.740 [facility] Comment on above: Performed By: #### L IPID, CMP, TSH #### [facility] [address] [address] [address] Cintia Durán Covid-19 PCR (CVDTB)on 05-06 SARS-CoV-2 (COVID-19) RNA NGUYEN+probe Ql (Unsp spec) Not detected Normal NOT DETECTED [facility] Comment on above: Result Comment: When [...] for this test is supported by the [place] of Health and Human Service's declaration that [...] used). Performed By: #### C VDTBH #### [facility] [address] [place] [address] Dr. Cintia Durán INFLUENZA A AND B AGon 06-01 [facility] SEE BELOW Normal [facility] Comment on above: Result Comment: Nega tive for Flu A protein angiten. Infection due to Flu A cannot be ruled out. Flu A angiten in the sample may be below the detection limit of the test. Performed By: #### I NFLUAB #### [facility] [address] [address] [address] Cintia Durán INFLUBNEG SEE BELOW Normal [facility] Comment on above: Result Comment: Nega tive for Flu B protein antigen. Infection due to Flu B cannot be ruled out. Flu B antigen in the sample may be below the detection limit of the test. Performed By: #### I NFLUAB #### [facility] [address] [address] [address] Cintia Durán INFLUENZA A AG Negative Normal NEGATIVE SEE COMMENT [facility] Comment on above: Performed By: #### I NFLUAB #### [facility] [address] [address] [address] Cintia Durán INFLUENZA B AG Negative Normal NEGATIVE SEE COMMENT [facility] Comment on above: Performed By: #### I NFLUAB #### [facility] [address] [place] [address] Dr. Cintia Durán INTERNAL CONTROLS Within Normal Limits Normal Within Normal Limits [facility] Comment on above: Performed By: #### I NFLUAB #### [facility] [address] [place] [address] Dr. Cintia Durán Covid-19 PCR ([facility])on SARS-CoV-2 (COVID-19) RNA NGUYEN+probe Ql (Unsp spec) Detected Critically abnormal NOT DETECTED [facility] Comment on above: Result Comment: This test is not yet approved or cleared by the [place] FDA. When there are no FDA-approved or cleared tests available, and other criteria are met, FDA can make tests available under an emergency access mechanism called an Emergency Use Authorization (EUA). The EUA for this test is supported by the [employer] [place] of Health and Human Service's declaration that [...] used). Performed By: #### C VDTBH #### [facility] [address] [place] [address] Dr. Cintia Durán Vital Signs Date Time Vital Sign Value Performing Clinician Facility 09-19-2024 14:38-0400 Body height 175.3 cm David Devi MD Work Phone: [facility] 09-19-2024 14:38-0400 Body mass index (BMI) [Ratio] 28.5 kg/m2 David Devi MD Work Phone: [facility] 09-19-2024 14:38-0400 Body weight 87.54 kg David Devi MD Work Phone: [facility] 09-19-2024 14:38-0400 Respiratory rate 16 /min David Devi MD Work Phone: [facility] 07-13-2023 11:30-0500 Body height 176.53 cm Miguel Angel Ball Other [facility] Other 07-13-2023 11:30-0500 Body mass index (BMI) [Ratio] 28.85 kg/m2 Miguel Angel Ball Other [facility] Other 07-13-2023 11:30-0500 Body weight 89.9 kg Miguel Angel Ball Other [facility] Other 07-13-2023 11:30-0500 Diastolic blood pressure 76 mm[Hg] Miguel Angel Ball Other [facility] Other 07-13-2023 11:30-0500 Respiratory rate 12 /min Miguel Angel Ball Other [facility] [employer] Other 07-13-2023 11:30-0500 Systolic blood pressure 134 mm[Hg] Miguel Angel Ball Other [facility] [employer] Other Encounters Encounter Date Encounter Type Care Provider Facility Start: 10-09-2024 ambulatory Hal Boudreaux ty:[facility] Start: 09-19-2024 End: 09-19-2024 Office outpatient new 45 minutes David Devi MD Work Phone: [facility]3] Urology Comment on above: Peyronie's disease ( Primary Dx) Start: 09-19-2024 ambulatory MIGUEL ANGEL BALL [facility] Start: 08-04-2023 End: 08-04-2023 ambulatory Miguel Angel Ball Other [facility] Other Start: 08-04-2023 Telephone encounter Miguel Angel Mays [facility] Start: 07-13-2023 End: 07-13-2023 ambulatory Miguel Angel Mays Other [facility] Other Start: 07-13-2023 Encounter for genera l adult medical examination without abnormal findings Miguel Angel Mays [facility] Start: 07-13-2023 Periodic preventive med est patient 40-64yrs Miguel Angel Mays [facility] Start: 07-13-2023 Telephone encounter Miguel Angel Mays FP [facility] Start: 07-01-2022 Encounter for genera l adult medical examination without abnormal findings DR MIGUEL ANGEL MAYS [facility] Start: 06-23-2022 End: 06-24-[address] MIGUEL ANGEL MAYS Facility:[facility] Start: 06-23-2022 End: 06-24-2022 Encounter for general adult medical examination without abnormal findings DR MIGUEL ANGEL MAYS Facility:[facility] Start: 06-01-2022 End: 06-01-2022 ambulatory YAYO BOYKIN Facility:[facility] Start: 05-13-2022 End: 05-14-[address] DAVON CAPPS Facility:[facility] Start: 01-10-2022 End: 01-11-[address] MIGUEL ANGEL MAYS Facility:[facility] Procedures Date Procedure Procedure Detail Performing Clinician Start: 09-19-2024 Urnls dip stick/tabl et rgnt auto w/o microscopy David Devi MD Work Phone: Start: 06-23-[address] KWONG [facility] Comment on above: Performed By: #### P [facility] #### [facility] [address] [place] [address] Dr. Cintia Durán Plan of Treatment Date Care Activity Detail Author Start: 09-15-2039 RSV VACCINE (1 - 1-d ose 75+ series) RSV VACCINE (1 - 1-dose 75+ series) [facility] Start: 03-05-2024 COVID-19 VACCINE ( season) COVID-19 VACCINE ( season) [facility] Start: 09-15-2019 Prostate specific an tigen measurement PROSTATE CANCER SCREENING DISCUSSION [facility] Start: 2014 Pneumococcal vaccination PNEUM OCOCCAL VACCINE SERIES (1 of 1 - PCV) [facility] Start: 2009 Screening for malign ant neoplasm of colon COLORECTAL CANCER SCREENING DISCUSSION [facility] Start: 2004 Lipid panel LIPID SCREENING [facility] Start: 09-15-1983 Third diphtheria, te tanus and acellular pertussis (DTaP) vaccination TDAP (ADULT) [facility] Start: 09-15-1979 HIV screening HIV SCREENING DISCUSSI ON [facility] Start: 1964 Hepatitis C screening HEPATITI S C VIRUS SCREENING [facility] Start: 1964 Tetanus vaccination TETANUS [facility] post-voiding residual urine&/bladder cap DC RUPA POST-VOIDING RESIDUAL URINE&/BLADDER CAP DC Charge Routine Peyronie's disease Ordered: 09/19/2024 [facility] Comment on above: Ordered: 09/19/2024 Payers Date Payer Category Payer Managed Care (unspecified) [facility] PPO POS [id number] 2022 [facility] [id number] 2019 Unknown [id number] 1964 Unknown [id number] 1964 Unknown [id number] 1964 Unknown [id number] 1964 Unknown [id number] 1959 Self-pay [id number] Unknown [id number] Social History Date Type Detail Facility Start: 09-19-2024 Sex Assigned At [facility] [employer] Other Start: 09-19-2024 Tobacco smoking stat [facility] [facility] Never smoked tobacco [facility] Start: 09-19-2024 Tobacco use and exposure Smokeless tobacco non-user [facility] Start: 09-19-2024 Alcoholic beverage intake Current drinker of alcohol (finding) [facility] Start: 09-19-2024 History of Social function [facility] Start: 09-19-2024 Alcohol Comment social [facility] Start: 1965 Sex assigned at Not on file [facility] Start: 09-06-2024 Sex Male (finding) [facility] History of Present illness Narrative 09-19-2024 Maggie Nicholson - 09/19/2024 2:30 PM EDTMaggie Juarez - 09/19/2024 2:30 PM EDTDavid Devi MD - 09/19/2024 2:30 PM EDT Note Date & Type Note Facility 09-19-2024 History of Presen t illness Narrative Nurse Note: Review of Systems Constitutional: Negative. HENT: Negative. Eyes: Negative. Respiratory: Negative. Cardiovascular: Negative. Gastrointestinal: Negative. Endocrine: Negative. Genitourinary: Negative. Musculoskeletal: Negative. Skin: Negative. Allergic/Immunologic: Negative. Neurological: Negative. Hematological: Negative. Psychiatric/Behavioral: Negative. Nursing Assessment: Physical Exam Patient is new to clinic for Peyronie. Has been an issue for about a year Lab Results Component Value Date APPEARANCE clear 09/19/2024 COLOR yellow 09/19/2024 SPECIFICGRAV <=1.005 09/19/2024 BLOOD neg 09/19/2024 PROTEIN neg 09/19/2024 UROBILINOGEN 0.2 09/19/2024 NITRITE neg 09/19/2024 LEUKOCYTE neg 09/19/2024 ' Chief Complaint Peyronie's Disease HPI Mr. Capps is a 59 y.o. male with Peyronie's Disease. The patient first noticed penile chordee about 1 year ago, and progressed since. There has been no recent change for several months. The chordee does cause some pain and makes sexual activity difficult. The chordee is 35-40 degrees dorsally and somewhat to the right. The patient currently denies flank pain, gross hematuria, or dysuria or new lower urinary tract symptoms. Also denies fevers, chills, nausea, vomiting. Past Medical History He has a past medical history of GERD (gastroesophageal reflux disease). Past Surgical History He has no past surgical history on file. Medications He has a current medication list which includes the following prescription(s): pantoprazole and simvastatin. Allergies He has no allergies on file. Social History He reports that he has never smoked. He has never used smokeless tobacco. He reports current alcohol use. He reports that he does not use drugs. Family History He has no family history of prostate, bladder or kidney cancer He has no family history of kidney stones Review of Systems Constitutional: No fevers or chills Skin: Negative for rash Endocrine: No heat/cold intolerance Cardiovascular: Negative for chest pain or dyspnea on exertion Respiratory: Negative for shortness of breath or wheezing Gastrointestinal: No constipation, nausea or vomiting Genitourinary: Negative for new lower urinary tract symptoms, current gross hematuria or dysuria. Musculoskeletal: No flank pain Neurological: Negative for frequent headaches or dizziness Lymph/Heme: Negative for leg swelling or calf pain. Physical Exam Resp 16 Ht 1.753 m (5' 9 ) Wt 87.5 kg (193 lb) BMI 28.50 kg/m Smoking Status Never Constitutional: NAD, WDWN. HEENT: NCAT. Conjunctivae normal. MMM. Cardiovascular: Regular rate. Pulmonary/Chest: Respirations are even and non-labored bilaterally. Abdominal: Soft. No distension, tenderness, masses or guarding. No CVA tenderness. Neurological: A + O x 3. Cranial Nerves II-XII grossly intact. Normal gait. Extremities: JONATHON x 4, Warm. No clubbing. No cyanosis. Skin: [place], warm and dry. No rashes noted. Psychiatric: Normal mood and affect Genitourinary Penis: circumcised penis, glans normal, no penile discharge. No rashes. 2.5cm partially calcified mid slightly right dorsal lesion noted. Testes: descended bilaterally, no masses, nontender to palpation. Remainder of scrotal contents normal. No hernia appreciated. Labs UA negative PVR 177cc Radiologic Studies None pertinent Assessment Mr. Capps is a 59 y.o. male with Peyronie's Disease. The patient first noticed penile chordee about 1 year ago, and progressed since. There has been no recent change for several months. The chordee does cause some pain and makes sexual activity difficult. The chordee is 35-40 degrees dorsally and somewhat to the right. 2.5cm partially calcified mid slightly right dorsal lesion noted. Plan 1. We discussed all the treatment options for Peyronie's Disease at length. Observation Overall, it is thought that a third of patients get better, a third stay the same and a third get worse. Oral therapy (Pentoxifylline and Cialis) Used in acute phase of Peyronie disease with Cialis being preferred choice. Intralesional or topical therapy (Verapamil and Xiaflex) Topical is administered daily for at least 3 months. Intralesional is administered every 2 weeks for 6 treatments over a total of 3 months. Surgical interventions Three options: plication, excision of plaque with grafting or IPP placement. He is leaning towards Xiaflex. We will start the prior authorization at our office. 2. Our office will follow up with him. documented in this encounter [facility] Evaluation note 08-04-2023 Note Date & Type Note Facility 08-04-2023 Evaluation note Encounter Date Diagnosis Assessment Notes Jul, Elevated PSA (ICD-10 - R97.20) Jul, Chronic kidney disease (CKD) stage G1/A3, glomerular filtration rate (GFR) equal to or greater than 90 mL/min/1.73 square meter and albuminuria creatinine ratio greater than 300 mg/g (ICD-10 - N18.1) [facility] Other Evaluation note 07-13-2023 Note Date & [...] (ICD-10 - Z12.5) Yearly PEPITO and PSA [facility] Other Evaluation note Note Date & Type Note Facility Evaluation note No Information [facility] Other Evaluation note Note Date & Type Note Facility Evaluation note Diagnosis Peyronie's disease- Primary documented in this encounter [facility] History general Narrative - Reported Note Date & Type Note Facility History general Narrative - Reported Type Medical History Hyperlipidemia type II Medical History Obstructive sleep apnea Medical History Gastroesophageal ref lux disease with esophagitis without hemorrhage Hospitalization History see surgical history [facility] [employer] Other Summary Purpose Family History No Family History Records FoundNo Family History Records FoundNo Family History Records Found Advance Directives No Advanced Directives Records FoundNo Advanced Directives Records FoundNo Advanced Directives Records Found Additional Source Comments (unrecognized sect ion and content) No Status Records FoundNo Status Records FoundNo Status Records Found INFORMATION SOURCE (unrecogn ized section and content) DATE CREATED AUTHOR 07/01/2022 [facility] DATE CREATED AUTHOR AUTHOR'S ORGANIZ ATION 08/26/2024 [facility] DATE CREATED AUTHOR AUTHOR'S ORGANIZ ATION 09/21/2024 [facility]3] Ho spital REASON FOR VISIT (unrecogniz ed section and content) Reason Comments New Patient Prostate issues Care Teams (unrecognized sec tion and content) 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 [employer] provides no warranty or guarantee of the accuracy or completeness of information in this document.
== END 2024-11-28 14:05 | disposition home or self-care (01) ==
LOC: LAB 14:06
PROVIDERS: PCP Internal Medicine; Visit Provider Internal Medicine
DX: Z00.00 Encounter for general adult medical examination without abnormal findings (principal)
CPT/HCPCS: 36415; 80053; 80061; 83036; 84443; 85025; G0103